=== PATIENT | female | born 1935 | race Two or more races ===

== ENCOUNTER 2018-04-23 18:33 | Emergency (ER) | payer MEDICARE ==
[~2018-04-23] VITALS: Ht 144.8 cm; Wt 47.6 kg
[~2018-04-23 18:33] MED LIST: LISI2.5T47 PO
[2018-04-23 18:50] VITALS: BP 183/66
== END 2018-04-23 23:23 | disposition left against medical advice (07) ==
LOC: ER 18:56
DX: I10 Essential (primary) hypertension (principal); Z53.21 Procedure and treatment not carried out due to patient leaving prior to being seen by health care provider
CPT/HCPCS: 93005

== ENCOUNTER 2018-04-24 10:11 | Emergency (ER) | payer MEDICARE ==
[~2018-04-24] VITALS: Ht 144.8 cm; Wt 49.9 kg
[2018-04-24 10:19] VITALS: BP 146/80
[2018-04-24] MEDS ORDERED: ASPirin 81 mg TAB PO ONE (10:30)
[2018-04-24 14:21] LABS: Basophils # (auto) 0.1 uL; Eosinophils # (auto) 0.8 uL; Hematocrit 39.6 % (36.0-46.0); Hemoglobin 12.9 g/dL (12.2-16.2); Lymphocytes # (auto) 1.4 uL; Lymphocytes % (auto) 18.2 % (10.0-50.0); Mean Corpuscular Hemoglobin 28.6 pg (28.0-32.0); Mean Corpuscular Hgb Conc. 32.7 g/dL (32.0-36.0); Mean Corpuscular Volume 87.3 fL (80.0-100.0); Monocytes # (auto) 0.5 uL; Monocytes % (auto) 6.8 % (0.0-12.0); Neutrophils # (auto) 4.7 uL; Nucleated Red Blood Cells % 0.1 %; Platelet Count (auto) 191 10^3/uL (140-450); Red Blood Cells 4.53 10^6/uL (4.0-5.20); Red Cell Distribution Width 14.1 % (11.8-14.3); White Blood Cell 7.5 10^3/uL (4.4-10.8)
[2018-04-24 14:43] LABS: Alanine Aminotransferase 19 U/L (13-56); Albumin 3.5 g/dL (3.4-5.0); Anion Gap 4 (5-15); Aspartate Aminotransferase 22 U/L (15-37); BUN/Creatinine Ratio 26.9; Blood Urea Nitrogen 28 mg/dL (7-18); Calcium 8.7 mg/dL (8.5-10.1); Carbon Dioxide 28 mmol/L (21-32); Chloride 110 mmol/L (98-107); GFR African American 65 mL/min; GFR Non-African American 54 mL/min; Glucose 93 mg/dL (74-106); Magnesium 2.3 mg/dL (1.6-2.6); Potassium 4.1 mmol/L (3.5-5.1); Sodium 142 mmol/L (136-145)
[2018-04-24 14:48] LABS: Alkaline Phosphatase 91 U/L (45-117); Bilirubin, Total 0.4 mg/dL (0.2-1.0); Total Protein 7.1 g/dL (6.4-8.2)
== END 2018-04-24 16:44 | disposition home or self-care (01) ==
LOC: ER 10:11
DX: R42 Dizziness and giddiness (principal); I10 Essential (primary) hypertension; Z88.5 Allergy status to narcotic agent; Z88.8 Allergy status to other drugs, medicaments and biological substances; Z79.899 Other long term (current) drug therapy; Z86.73 Personal history of transient ischemic attack (TIA), and cerebral infarction without residual deficits
CPT/HCPCS: 36415; 70450; 71046; 80053; 83735; 83880; 84484; 85025; 93005; 94761

== ENCOUNTER 2018-04-25 08:58 | Emergency (ER) | payer MEDICARE ==
[~2018-04-25] VITALS: Ht 144.8 cm; Wt 49.9 kg
[2018-04-25] MEDS ORDERED: SODIUM CHLORIDE 0.9% 1,000 ML IV ONE ×2 (09:47)
[2018-04-25] MEDS ORDERED: PANTOPRAZOLE 40 MG/10 ML VIAL IV ONE (11:00)
[2018-04-25] MEDS ORDERED: PANTOPRAZOLE 40 MG TAB PO ONE (12:00)
[2018-04-25 12:03] VITALS: BP 148/68
== END 2018-04-25 11:53 | disposition home or self-care (01) ==
LOC: ER 08:58
DX: K29.70 Gastritis, unspecified, without bleeding (principal); I10 Essential (primary) hypertension; Z86.73 Personal history of transient ischemic attack (TIA), and cerebral infarction without residual deficits; Z88.5 Allergy status to narcotic agent; Z88.8 Allergy status to other drugs, medicaments and biological substances; Z79.899 Other long term (current) drug therapy
CPT/HCPCS: 93005

== ENCOUNTER 2018-08-11 15:42 | Emergency (ER) | payer MEDICARE ==
[~2018-08-11] VITALS: Ht 170.2 cm; Wt 49.9 kg
[2018-08-11 17:20] VITALS: BP 168/76
[2018-08-11] MEDS ORDERED: traMADol HCL 50 MG TAB PO ONE (18:00)
== END 2018-08-11 19:01 | disposition left against medical advice (07) ==
LOC: EDBD 15:42 → EDUNIT# 15:42 → ER 15:51 → UNDOADMIN 15:52 → TELE 15:52 → ER 19:01
DX: S40.011A Contusion of right shoulder, initial encounter (principal); S09.90XA Unspecified injury of head, initial encounter; Z53.29 Procedure and treatment not carried out because of patient's decision for other reasons; W18.39XA Other fall on same level, initial encounter; Y93.89 Activity, other specified; Y99.8 Other external cause status; Y92.89 Other specified places as the place of occurrence of the external cause
CPT/HCPCS: 70450; 73060

== ENCOUNTER 2021-07-25 16:00 | Emergency (ER) | payer MEDICARE, OTHER ==
[~2021-07-25] VITALS: Ht 162.6 cm; Wt 40.8 kg
[2021-07-25] MEDS ORDERED: ASPirin 81 mg TAB PO ONE (16:15)
[2021-07-25 19:12] LABS: Basophils # (auto) 0 10 ^3/uL (0-0.2); Basophils % (auto) 0.4 % (0.0-2.0); Eosinophils # (auto) 0.3 10 ^3/uL (0-0.8); Eosinophils % (auto) 7.6 % (0.0-7.0); Hematocrit 38.1 % (36.0-46.0); Hemoglobin 12.8 g/dL (12.2-16.2); Lymphocytes # (auto) 1.3 10 ^3/uL (0.4-5.4); Lymphocytes % (auto) 28.6 % (10.0-50.0); Mean Corpuscular Hemoglobin 27.7 pg (28.0-32.0); Mean Corpuscular Hgb Conc. 33.5 g/dL (32.0-36.0); Mean Corpuscular Volume 82.7 fL (80.0-100.0); Monocytes # (auto) 0.5 10 ^3/uL (0-1.3); Monocytes % (auto) 12.3 % (0.0-12.0); Neutrophils # (auto) 2.3 10 ^3/uL (1.6-8.6); Neutrophils % (auto) 51.1 % (37.0-80.0); Nucleated Red Blood Cells % 0.1 %; Red Blood Cells 4.61 10^6/uL (4.0-5.20); Red Cell Distribution Width 14.7 % (11.8-14.3); White Blood Cell 4.4 10^3/uL (4.4-10.8)
[2021-07-25 19:41] LABS: Albumin 2.8 g/dL (3.4-5.0); BUN/Creatinine Ratio 24.3; Potassium 3.9 mmol/L (3.5-5.1)
[2021-07-25 19:44] LABS: Bilirubin, Total 0.3 mg/dL (0.2-1.0); Total Protein 6.4 g/dL (6.4-8.2)
[2021-07-25] MEDS ORDERED: IOHEXOL 350 MG/ML 100ML IJ ONE (20:07)
[2021-07-26 02:46] VITALS: BP 166/60
[2021-07-26 03:47] LABS: Urine Bacteria NONE SEEN /hpf (None Seen); Urine Blood Negative /uL (Negative); Urine WBC 5 /hpf (0 - 5)
== END 2021-07-26 03:26 | disposition home or self-care (01) ==
LOC: ER 16:00 → EDBD 16:00 → ER 07-26 03:26
DX: R07.89 Other chest pain (principal); I10 Essential (primary) hypertension; Z86.73 Personal history of transient ischemic attack (TIA), and cerebral infarction without residual deficits; Z88.6 Allergy status to analgesic agent
CPT/HCPCS: 36415; 71045; 71275; 80053; 81001; 84484; 85025; 85379; 93005; 99285; Q9967

== ENCOUNTER 2022-07-23 16:17 | Emergency (ER) | payer MEDICARE, OTHER ==
[~2022-07-23] VITALS: Ht 149.9 cm; Wt 51.3 kg
[2022-07-23] MEDS ORDERED: HYDROcodone-ACET 5/325MG TAB PO ONE (18:00)
[2022-07-23 21:30] VITALS: BP 138/76
== END 2022-07-23 22:44 | disposition home or self-care (01) ==
LOC: EDBD 16:17 → ER 16:17
DX: S62.307A Unspecified fracture of fifth metacarpal bone, left hand, initial encounter for closed fracture (principal); S09.8XXA Other specified injuries of head, initial encounter; I10 Essential (primary) hypertension; Z88.6 Allergy status to analgesic agent; Z86.73 Personal history of transient ischemic attack (TIA), and cerebral infarction without residual deficits; V49.9XXA Car occupant (driver) (passenger) injured in unspecified traffic accident, initial encounter; Y93.89 Activity, other specified; Y92.89 Other specified places as the place of occurrence of the external cause; Y99.8 Other external cause status
CPT/HCPCS: 29125; 70450; 71045; 72125; 73110; 73590

== ENCOUNTER 2022-11-17 07:30 | Inpatient (IN) | payer MEDICARE, OTHER ==
[2022-11-17] VITALS (7 sets, daily range): BP systolic 140–149; BP diastolic 56–81; PULSE 69–80; RESP 11–18; TEMP 36.6; O2SAT 94–99
[~2022-11-17] VITALS: Ht 147.3 cm; Wt 54.0 kg
[2022-11-17] MEDS ORDERED: SODIUM CHLORIDE 0.9% 1,000 ML IV ONE (07:45)
[2022-11-17 08:24] LABS: Alanine Aminotransferase 14 U/L (7-40); Albumin 4.2 g/dL (3.2-4.8); Alkaline Phosphatase 90 U/L (46-116); Anion Gap 9 (5-15); Aspartate Aminotransferase 23 U/L (13-40); BUN/Creatinine Ratio 18.1 (10.0-20.0); Bilirubin, Total 0.7 mg/dL (0.2-1.0); Blood Urea Nitrogen 23 mg/dL (9-23); Calcium 9.4 mg/dL (8.5-10.1); Carbon Dioxide 26 mmol/L (20-30); Chloride 105 mmol/L (98-107); Glucose 115 mg/dL (74-106); Potassium 3.5 mmol/L (3.5-5.1); Sodium 140 mmol/L (136-145); Total Protein 6.7 g/dL (5.7-8.2)
[2022-11-17 08:44] LABS: Basophils # (auto) 0 10 ^3/uL (0-0.2); Eosinophils # (auto) 0.4 10 ^3/uL (0-0.8); Eosinophils % (auto) 7.9 % (0.0-7.0); Hematocrit 39.1 % (36.0-46.0); Hemoglobin 12.8 g/dL (12.2-16.2); Lymphocytes # (auto) 1.2 10 ^3/uL (0.4-5.4); Lymphocytes % (auto) 23.8 % (10.0-50.0); Mean Corpuscular Hemoglobin 28.4 pg (28.0-32.0); Mean Corpuscular Hgb Conc. 32.8 g/dL (32.0-36.0); Mean Corpuscular Volume 86.8 fL (80.0-100.0); Monocytes # (auto) 0.5 10 ^3/uL (0-1.3); Monocytes % (auto) 11.1 % (0.0-12.0); Neutrophils # (auto) 2.7 10 ^3/uL (1.6-8.6); Neutrophils % (auto) 56.2 % (37.0-80.0); Nucleated Red Blood Cells % 0.2 %; Red Cell Distribution Width 14.4 % (11.8-14.3); White Blood Cell 4.8 10^3/uL (4.4-10.8)
[2022-11-17 11:37] LABS: Magnesium 1.8 mg/dL (1.6-2.6)
[2022-11-17 11:38] LABS: Phosphorus 3.7 mg/dL (2.4-5.1)
[2022-11-17] MEDS: SODIUM CHLORIDE 0.9% 1,000 ML IV SCH ×2 (11:43→21:09)
[2022-11-17] MEDS ORDERED: ACETAMINOPHEN 325 MG TAB PO PRN (12:45)
[2022-11-17] MEDS ORDERED: ENOXAPARIN SOD 60 MG/0.6 ML SYRINGE SC SCH (13:00)
[2022-11-17] MEDS ORDERED: amLODIPine BESYLATE 5 MG TAB PO ONE (16:00)
[2022-11-17] MEDS: ATORVASTATIN 20 MG TAB PO SCH (21:08)
[2022-11-17] MEDS ORDERED: LORazepam 2MG/ML-1ML VIAL IV PRN (21:30)
[2022-11-18] VITALS (7 sets, daily range): BP systolic 138–158; BP diastolic 47–70; PULSE 60–79; RESP 17–18; TEMP 97.4–98.4; O2SAT 94–97
[2022-11-18] MEDS: SODIUM CHLORIDE 0.9% 1,000 ML IV SCH ×2 (06:28→17:00)
[2022-11-18] MEDS: ASPirin 81 mg TAB PO SCH (08:38)
[2022-11-18] MEDS ORDERED: LISINOPRIL 5 MG TAB PO SCH (10:00)
[2022-11-18] MEDS ORDERED: ENOXAPARIN SOD 30 MG/0.3 ML SYRINGE SC SCH (10:00)
[2022-11-18] MEDS ORDERED: diphenhdrAMINE HCL 25 MG CAP PO PRN (11:45)
[2022-11-18] MEDS ORDERED: VALSARTAN 80 MG TAB PO ONE (11:45)
[2022-11-18 14:38] LABS: COVID19 ANTIGEN SOFIA FIA POSITIVE (NEGATIVE)
[2022-11-18] MEDS: ATORVASTATIN 20 MG TAB PO SCH (21:36)
[2022-11-19 05:00] VITALS: BP 171/68; PULSE 80; RESP 18; TEMP 98; O2SAT 95
[2022-11-19 05:18] LABS: Hematocrit 34.1 % (36.0-46.0); Hemoglobin 11.2 g/dL (12.2-16.2); Mean Corpuscular Hemoglobin 28.3 pg (28.0-32.0); Mean Corpuscular Hgb Conc. 32.9 g/dL (32.0-36.0); Mean Corpuscular Volume 86.1 fL (80.0-100.0); Red Blood Cells 3.96 10^6/uL (4.0-5.20); Red Cell Distribution Width 14.5 % (11.8-14.3)
[2022-11-19 05:20] LABS: Band Neutrophils % (manual) 0; Basophils % (manual) 0 (0.0-2.0); Blast Cells 0; Metamyelocytes % 0; Myelocytes % 0; Promyelocytes % 0; Reactive Lymphocytes 0
[2022-11-19 05:26] LABS: Anion Gap 6 (5-15); Carbon Dioxide 24 mmol/L (20-30); Chloride 111 mmol/L (98-107); Potassium 3.7 mmol/L (3.5-5.1); Sodium 141 mmol/L (136-145)
[2022-11-19 05:27] LABS: Calcium 8.6 mg/dL (8.7-10.4)
[2022-11-19 05:32] LABS: BUN/Creatinine Ratio 17.1 (10.0-20.0); Blood Urea Nitrogen 13 mg/dL (9-23); Glucose 110 mg/dL (74-106)
[2022-11-19 06:06] LABS: Eosinophils % (manual) 14 (0-7); Lymphocytes % (manual) 21 (10.0-50.0); Monocytes % (manual) 6 (0-12); Platelet Estimate Adequate
[2022-11-19] MEDS: SODIUM CHLORIDE 0.9% 1,000 ML IV SCH (06:07)
[2022-11-19] MEDS ORDERED: ENOXAPARIN SOD 30 MG/0.3 ML SYRINGE SC ONE (07:30)
[2022-11-19] MEDS ORDERED: amLODIPine BESYLATE 5 MG TAB PO ONE (07:30)
[2022-11-19 08:00] VITALS: PULSE 73; PULSE 92; RESP 18; O2SAT 97
[2022-11-19] MEDS: ASPirin 81 mg TAB PO SCH (09:30)
[2022-11-19] MEDS ORDERED: VALSARTAN 80 MG TAB PO SCH (10:00)
[2022-11-19] MEDS ORDERED: AMLO1TAB23 PO (10:04)
[2022-11-19] MEDS ORDERED: METO-289 PO (10:05)
[2022-11-19] MEDS ORDERED: DIPH25CA66 PO (10:36)
[2022-11-19 10:46] VITALS: BP 147/72; PULSE 95; RESP 18; TEMP 97.7; O2SAT 95
[2022-11-20 07:06] LABS: RPR Non Reactive (Non Reactive)
[2022-11-20] MEDS ORDERED: amLODIPine BESYLATE 5 MG TAB PO SCH (10:00)
[2022-11-20] MEDS ORDERED: ENOXAPARIN SOD 30 MG/0.3 ML SYRINGE SC SCH (10:00)
== END 2022-11-19 15:39 | disposition home or self-care (01) | DRG 177 ==
LOC: ER 07:30 → TELE 10:51 → TELE-WESTW 13:36
PROVIDERS: ADMIT Internal Medicine Pulmonary Disease; ATTEND Internal Medicine Pulmonary Disease
DX: U07.1 COVID-19 (principal); G93.41 Metabolic encephalopathy; E16.2 Hypoglycemia, unspecified; I16.0 Hypertensive urgency; Z60.2 Problems related to living alone; R55 Syncope and collapse; R53.81 Other malaise; I12.9 Hypertensive chronic kidney disease with stage 1 through stage 4 chronic kidney disease, or unspecified chronic kidney disease; N18.32 Chronic kidney disease, stage 3b; Z82.49 Family history of ischemic heart disease and other diseases of the circulatory system; Z86.73 Personal history of transient ischemic attack (TIA), and cerebral infarction without residual deficits; Z90.5 Acquired absence of kidney; Z88.5 Allergy status to narcotic agent; Z88.8 Allergy status to other drugs, medicaments and biological substances; Z91.81 History of falling
CPT/HCPCS: 36415; 70450; 71045; 80048; 80053; 82728; 82962; 83735; 84100; 84439; 84443; 84484; 85007; 85025; 85027; 85379; 86141; 86592; 87426; 92610; 93005; 93306; 93886; 93970; 95819; 96372; 97110; 97116; 97163; 97530; G0378

== ENCOUNTER 2022-11-23 12:45 | Emergency (ER) | payer MEDICARE, OTHER ==
[~2022-11-23] VITALS: Ht 147.3 cm; Wt 50.3 kg
[~2022-11-23 12:45] MED LIST changes: +AMLO1TAB23 PO; +DIPH25CA66 PO; -LISI2.5T47 PO; +METO-289 PO
[2022-11-23 12:50] VITALS: BP 131/57; RESP 20; O2SAT 96
[2022-11-23 13:01] VITALS: PULSE 85
== END 2022-11-24 15:16 | disposition left against medical advice (07) ==
LOC: ER 12:45
DX: R53.1 Weakness (principal); Z88.5 Allergy status to narcotic agent; Z88.8 Allergy status to other drugs, medicaments and biological substances; Z79.899 Other long term (current) drug therapy; Z53.29 Procedure and treatment not carried out because of patient's decision for other reasons
CPT/HCPCS: 82962; 93005

== ENCOUNTER 2023-10-04 23:47 | Inpatient (IN) | payer MEDICARE, OTHER ==
[~2023-10-04] VITALS: Ht 149.9 cm; Wt 52.8 kg
[2023-10-05 01:48] LABS: Basophils # (auto) 0.1 10 ^3/uL (0-0.2); Basophils % (auto) 0.9 % (0.0-2.0); Eosinophils # (auto) 0.5 10 ^3/uL (0-0.8); Hematocrit 37.9 % (36.0-46.0); Hemoglobin 12.5 g/dL (12.2-16.2); Lymphocytes # (auto) 1.1 10 ^3/uL (0.4-5.4); Lymphocytes % (auto) 12.3 % (10.0-50.0); Mean Corpuscular Hemoglobin 28.6 pg (28.0-32.0); Mean Corpuscular Hgb Conc. 33.1 g/dL (32.0-36.0); Mean Corpuscular Volume 86.4 fL (80.0-100.0); Monocytes # (auto) 0.6 10 ^3/uL (0-1.3); Monocytes % (auto) 7.3 % (0.0-12.0); Neutrophils # (auto) 6.5 10 ^3/uL (1.6-8.6); Neutrophils % (auto) 73.5 % (37.0-80.0); Nucleated Red Blood Cells % 0.1 %; Platelet Count (auto) 145 10^3/uL (140-450); Red Blood Cells 4.39 10^6/uL (4.0-5.20); Red Cell Distribution Width 15.6 % (11.8-14.3); White Blood Cell 8.8 10^3/uL (4.4-10.8)
[2023-10-05 02:00] VITALS: PULSE 68; RESP 14; O2SAT 99
[2023-10-05 02:02] LABS: Alanine Aminotransferase 16 U/L (7-40); Albumin 3.9 g/dL (3.2-4.8); Alkaline Phosphatase 86 U/L (46-116); Anion Gap 8 (5-15); Aspartate Aminotransferase 11 U/L (13-40); BUN/Creatinine Ratio 17.6 (10.0-20.0); Bilirubin, Total 0.5 mg/dL (0.2-1.0); Blood Urea Nitrogen 21 mg/dL (9-23); Calcium 9.5 mg/dL (8.7-10.4); Carbon Dioxide 25 mmol/L (20-30); Chloride 111 mmol/L (98-107); Glucose 126 mg/dL (74-106); Potassium 3.9 mmol/L (3.5-5.1); Sodium 144 mmol/L (136-145); Total Protein 6.2 g/dL (5.7-8.2)
[2023-10-05 02:14] LABS: Lipase 46 U/L (12-53)
[2023-10-05] MEDS: MORPHINE SULFATE INJ 2 MG/ml SYRG IV ONE (03:15)
[2023-10-05] MEDS: ONDANSETRON HCL 4 MG/2 ML VIAL IV ONE (03:15)
[2023-10-05] MEDS: SODIUM CHLORIDE 0.9% 1,000 ML IV ONE (04:59)
[2023-10-05] MEDS ORDERED: ONDANSETRON HCL 4 MG/2 ML VIAL IV PRN (05:30)
[2023-10-05] MEDS ORDERED: MORPHINE SULFATE INJ 2 MG/ml SYRG IV PRN (05:30)
[2023-10-05] MEDS ORDERED: NITROGLYCERIN 0.4 MG SL TAB SL PRN (05:30)
[2023-10-05] MEDS ORDERED: DOCUSATE SOD 100 MG CAP PO PRN (05:30)
[2023-10-05] MEDS: SODIUM CHLOR 0.9% PF (SALINE LOCK) 10ML VIAL/SYR IV SCH (06:24)
[2023-10-05 07:25] VITALS: PULSE 72; RESP 16; O2SAT 97
[2023-10-05] MEDS: ACETAMINOPHEN 325 MG TAB PO PRN (12:17)
[2023-10-05 12:23] LABS: Urine Bacteria FEW /hpf (None Seen); Urine Blood Negative /uL (Negative); Urine Clarity Clear (Clear); Urine Color Light-Yellow (Yellow); Urine Mucus FEW (None Seen); Urine Protein, UAD Negative (Negative); Urine Specific Gravity 1.015 (1.001-1.035); Urine Urobilinogen Normal (Negative); Urine WBC 3 /hpf (0 - 5); Urine pH 5.5 (5.0-9.0)
[2023-10-05] MEDS: hydrALAZINE HCL 20 MG/ML VL IV PRN (15:40)
[2023-10-05 17:28] VITALS: O2SAT 98
[2023-10-05 17:37] VITALS: BP 150/63; PULSE 91; RESP 18; TEMP 97.8; O2SAT 98
[2023-10-05 20:00] VITALS: PULSE 87; RESP 17
[2023-10-06 01:15] VITALS: BP 140/59; PULSE 87; RESP 17; TEMP 98.1; O2SAT 99
[2023-10-06 05:00] VITALS: BP 120/69; PULSE 67; RESP 18; TEMP 97.9; O2SAT 97
[2023-10-06 07:05] LABS: Hematocrit 35.3 % (36.0-46.0); Hemoglobin 11.6 g/dL (12.2-16.2); Mean Corpuscular Hemoglobin 28.5 pg (28.0-32.0); Mean Corpuscular Hgb Conc. 32.9 g/dL (32.0-36.0); Mean Corpuscular Volume 86.7 fL (80.0-100.0); Platelet Count (auto) 139 10^3/uL (140-450); Red Blood Cells 4.07 10^6/uL (4.0-5.20); Red Cell Distribution Width 15.6 % (11.8-14.3); White Blood Cell 5.2 10^3/uL (4.4-10.8)
[2023-10-06 07:17] LABS: Band Neutrophils % (manual) 0; Basophils % (manual) 0 (0.0-2.0); Blast Cells 0; Metamyelocytes % 0; Myelocytes % 0; Promyelocytes % 0; Reactive Lymphocytes 0
[2023-10-06 07:30] VITALS: PULSE 87
[2023-10-06 07:36] LABS: Alanine Aminotransferase 10 U/L (7-40); Alkaline Phosphatase 75 U/L (46-116); Anion Gap 6 (5-15); Blood Urea Nitrogen 17 mg/dL (9-23); Calcium 9.2 mg/dL (8.7-10.4); Carbon Dioxide 25 mmol/L (20-30); Chloride 112 mmol/L (98-107); Glucose 95 mg/dL (74-106); Potassium 4.2 mmol/L (3.5-5.1); Sodium 143 mmol/L (136-145)
[2023-10-06 07:37] LABS: Albumin 3.3 g/dL (3.2-4.8); Aspartate Aminotransferase 10 U/L (13-40); Bilirubin, Total 0.5 mg/dL (0.2-1.0); Total Protein 5.2 g/dL (5.7-8.2)
[2023-10-06 08:19] LABS: Eosinophils % (manual) 13 (0-7); Lymphocytes % (manual) 20 (10.0-50.0); Monocytes % (manual) 5 (0-12)
[2023-10-06 08:21] LABS: Anisocytosis Slight; Ovalocytes FEW
[2023-10-06 08:26] LABS: Platelet Estimate Decreased
[2023-10-06 08:54] VITALS: BP 141/56; PULSE 64; RESP 18; TEMP 98.1; O2SAT 96
[2023-10-06] MEDS: diphenhdrAMINE HCL 50 MG/1 ML VL IV PRN (11:22)
[2023-10-06 12:09] VITALS: BP_SYST 129; BP_SYST 149; BP_DIAS 65; BP_DIAS 68; PULSE 59; PULSE 93; RESP 18; RESP 20; TEMP 98.7; O2SAT 96; O2SAT 98
[2023-10-06 14:21] VITALS: TEMP 37.1
== END 2023-10-06 15:00 | disposition home or self-care (01) | DRG 604 ==
LOC: EDUNIT# 23:47 → ER 23:47 → EDBD 23:47 → TELE 10-05 05:28 → TELE-WESTW 10-05 17:16
PROVIDERS: ADMIT Nurse Practitioner Family; ATTEND Nurse Practitioner Family
DX: S00.83XA Contusion of other part of head, initial encounter (principal); G93.41 Metabolic encephalopathy; I10 Essential (primary) hypertension; I95.9 Hypotension, unspecified; E86.0 Dehydration; Z86.73 Personal history of transient ischemic attack (TIA), and cerebral infarction without residual deficits; W18.39XA Other fall on same level, initial encounter; Y93.89 Activity, other specified; Y92.098 Other place in other non-institutional residence as the place of occurrence of the external cause; Y99.8 Other external cause status
CPT/HCPCS: 36415; 70450; 71045; 72125; 80053; 81001; 83605; 83690; 83880; 84484; 85007; 85025; 85027; 93005; G0378; J2405

== ENCOUNTER 2024-01-19 14:27 | Emergency (ER) | payer MEDICARE, OTHER ==
[~2024-01-19] VITALS: Ht 149.9 cm; Wt 49.5 kg
--- NOTE | 2024-01-19 16:02 | ED.PDOC ---
History of Present Illness HPI Comments 89Y F with PMHx HTN and CVA presents to ED for chief complaint rt hand pain. Pt states pain radiates to upper arm and she has now started to develop blisters on fingertips. Pt states the blisters accidentally opened and drained yellow fluid 2 days ago. Blisters began forming 2 weeks ago. Pt says rt hand began to hurt "like needles" and feel cold after getting an IV placed here at [facility] in October 2023. Pt also c/o feeling itchy from "head to toe". When gathering pt hx, pt explained she had a coil placed in her RUE in 2018 at [facility] and it was meant to be placed into a different pt. Pt says coil was never removed from her arm. Per pt, she has been prescribed 32 meds by multiple providers but is only taking Losartan. Allergies include morphine and codeine. Chief Complaint: Upper Extremity Time Seen by MD: 15:35 Primary Care Provider: STOOP Reviewed Notes: Medications, Allergies Allergies: Coded Allergies: Morphine (Verified Allergy, Severe, 07/23/22) Lisinopril (Verified Allergy, Unknown, 07/23/22) Uncoded Allergies: ALL PAIN MEDS (Allergy, Severe, 04/23/18) CODIENE (Adverse Reaction, Intermediate, "MAKES ME CRAZY", 01/22/10) Home Meds Active Scripts Diphenhydramine Hcl (Benadryl Allergy) 25 Mg Cap, 1 CAP PO QPM, #7 CAP 1 Refill Prov:CECE REDDY MD 11/19/22 Metoprolol Succinate (Metoprolol Succinate Er) 50 Mg Tab, 1 TAB PO DAILY, #30 TAB 5 Refills Prov:CECE REDDY MD 11/19/22 Amlodipine Besylate (Amlodipine Besylate) 10 Mg Tab, 1 TAB PO DAILY, #30 TAB 5 Refills Prov:CECE REDDY MD 11/19/22 Information Source: Patient Mode of Arrival: Ambulatory Severity: Mild Timing: Weeks Duration: Since onset Past Medical History PAST MEDICAL HISTORY: CVA, HTN Surgical History (Other): nephrectomy 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 History Family History Family History: Unobtainable Social History Smoker: Non-Smoker Alcohol: Denies ETOH Use Drugs: Denies Drug Use Lives In: Home Constitutional: denies: chills, diaphoresis, fatigue, fever, malaise, sweats, weakness, others EENTM: denies: blurred vision, double vision, ear bleeding, ear discharge, ear drainage, ear pain, ear ringing, eye pain, eye redness, hearing loss, mouth pain, mouth swelling, nasal discharge, nose bleeding, nose congestion, nose pain, photophobia, tearing, throat pain, throat swelling, voice changes, others Respiratory: denies: cough, hemoptysis, orthopnea, SOB at rest, shortness of breath, SOB with excertion, stridor, wheezing, others Cardiovascular: denies: chest pain, dizzy spells, diaphoresis, Dyspnea on exertion, edema, irregular heart beat, left arm pain, lightheadedness, palpitations, PND, syncope, others Gastrointestinal: denies: abdomen distended, abdominal pain, blood streaked bowels, constipated, diarrhea, dysphagia, difficulty swallowing, hematemesis, melena, nausea, poor appetite, poor fluid intake, rectal bleeding, rectal pain, vomiting, others Genitourinary: denies: abnormal vagina bleeding, burning, dyspareunia, dysuria, flank pain, frequency, hematuria, incontinence, pain, , vagina discharge, urgency, others Neurological: denies: dizziness, fainting, headache, left sided numbness, left sided weakness, numbness, paresthesia, pre-existing deficit, right sided numbness, right sided weakness, seizure, speech problems, tingling, tremors, weakness, others Musculoskeletal: reports: joint pain; denies: back pain, gout, joint swelling, muscle pain, muscle stiffness, neck pain, others Integumetry: reports: others (pruritus); denies: bruises, change in color, change in hair/nails, dryness, laceration, lesions, lumps, rash, wounds Allergic/Immunocompromised: denies: Difficulty Healing, Frequent Infections, Hives, Itching, others Hematologic/Lymphatic: denies: anemia, blood clots, easy bleeding, easy bruising, swollen glands, others Endocrine: denies: excessive hunger, excessive sweating, excessive thirst, excessive urination, flushing, intolerance to cold, intolerance to heat, unexplained weight gain, unexplained weight loss, others Psychiatric: denies: anxiety, bipolar disorder, depression, hopeless, panic disorder, schizophrenia, sleepless, suicidal, others All Other Systems: Reviewed and Negative Physical Exam General Appearance: No Apparent Distress HEENT: Normal ENT Inspection Neck: Full Range of Motion, Normal Inspection Respiratory: Lungs Clear, No Accessory Muscle Use, No Respiratory Distress, Normal Breath Sounds Cardiovascular: No Edema, No JVD, Regular Rate/Rhythm Breast Exam: Deferred Gastrointestinal: Non Tender, Soft Genitalia: Deferred Pelvic: Deferred Rectal: Deferred Extremities: Normal range of motion, Non-tender, No pedal edema, Slow capillary refill, Other (Hand mild soft tissue swelling of the fingertips with tenderness and a subcentimeter scabbed lesion on the 3rd digit finger pad. No erythema or discharge. Right hand cool to the touch, pale with delayed capillary refill as compared to the left hand.) Neurologic: Alert, No Motor Deficits, Normal Affect, Normal Mood, No Sensory Deficits Cerebellar Function: NOT DONE Reflexes: NOT DONE Skin: Dry, Normal Color, Warm Lymphatic: NOT DONE Was a procedure done? Was a procedure done?: No Differential Dx Considerations may include: Infection, musculoskeletal pain, neuropathic pain, VTE, peripheral arterial disease/occlusion, among others. X-Ray, Labs, Meds, VS Vital Signs Date Time Temp Pulse Resp B/P (MAP) Pulse Ox O2 Delivery O2 Flow Rate FiO2 01/19/24 17:03 87 17 95 Room Air* 0 21 01/19/24 17:03 98.4 87 17 181/54 (96) 95 98.4 01/19/24 15:10 99.3 100 18 132/84 (100) 95 Current Medications Medications (Trade) Dose Ordered Sig/Charisse Route Start Time Stop Time Status Last Admin Acetaminophen/ Hydrocodone Bitart (Lima 5/325MG Tab) 1 tab ONCE ONCE PO 01/19/24 16:00 01/19/24 16:01 DC 01/19/24 17:01 PROCEDURE(s): RUDVT - Rt Upper DVT REASON: pain, swollen fingers ORDER NUMBER(s): [id number], ACCESSION NUMBER(s): [id number] RIGHT Upper Extremity Venous Duplex Clinical History: pain, swollen fingers Comparison: US BILAT LOWER DVT on DOS: 11/17/22 Technique: Duplex Doppler evaluation of the venous system of the RIGHT lower neck and upper extremity including color Doppler and spectral/pulsed waveform analysis was performed. Findings: The internal jugular vein demonstrates appropriate compressibility and waveform variability . The subclavian vein is patent on color Doppler evaluation without intraluminal thrombus and demonstrates waveform variability . The visualized portion of the brachiocephalic vein is patent on color Doppler evaluation without intraluminal thrombus and demonstrates waveform variability . The axillary vein demonstrates appropriate compressibility and waveform variability . The brachial veins demonstrate appropriate compressibility and patency on Doppler evaluation. The basilic vein demonstrates appropriate compressibility and patency on Doppler evaluation. The cephalic vein demonstrates appropriate compressibility and patency on Doppler evaluation. Impression: 1. No venous thrombus identified in the RIGHT upper extremity vessels evaluated above. 2. If clinical concern/symptoms persist or worsen, short-interval follow-up study is suggested. EDURE(s): RUEAD - Rt Upper Ext Art Duplex REASON: ORDER NUMBER(s): [id number], ACCESSION NUMBER(s): [id number] Right upper Extremity Arterial Duplex Date: 01/19/2024 04:20 PM Clinical History: Pain Comparison: None Technique: Duplex Doppler evaluation including color Doppler and spectral/pulsed waveform analysis of the right upper extremity arteries was performed. Finding: RIGHT: Peak systolic velocities are as follows: Subclavian 143 cm/s Axillary 52 cm/s Brachial 82 cm/s Radio 18 cm/s Ulnar 6 cm/s In the right axillary area there appears to be a right axillary artery pseudoaneurysm measuring approximately 2.5 by 3.0 cm with a 1.6 cm neck. IMPRESSION: 1. 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 Consider CTA of the right upper extremity for further characterization. 2. The remaining right upper extremity arteries are patent. X-Ray, Labs, Meds, VS Comment 89Y F with PMHx HTN and CVA presenting complaining of right hand pain radiating to the upper arm and a lesion on her right 3rd digit Vitals remarkable for BP 181/54 Remarkable for a subcentimeter scabbed lesion on the 3rd finger pad with mild soft tissue tenderness, mild soft tissue swelling of the right fingertips, right hand pallor, cool to the touch with delayed capillary refill as compared to the left hand Right upper extremity venous Doppler negative for DVT Right upper extremity arterial duplex: IMPRESSION: 1. 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 Consider CTA of the right upper extremity for further characterization. 2. The remaining right upper extremity arteries are patent. CBC, basic metabolic panel and coagulation panel pending Patient treated with the following in the ED: Lima 5/325 mg p.o. Plan was to transfer the patient for level of care, vascular surgical evaluation. Patient was called multiple times for re-evaluation, however there was no answer. It was determined the patient had eloped. Time of 1ST Reevaluation: 16:05 Reevaluation 1ST: Unchanged Time of 2ND Reevaluation: 19:17 Reevaluation 2ND: Improved Patient Education/Counseling: Treatment Family Education/Counseling: No Family Present Departure 1 Departure Time of Disposition: 19:17 Impression: Primary Impression: Pseudoaneurysm of artery of upper extremity Disposition: 07 LEFT AWOL/ELOPED Condition: Guarded Critical Care Note Critical Care Time?: No Stability Stability form required: No Heart Score Heart Score: Heart Score Response (Comments) Value History N/A 0 EKG N/A 0 Age N/A 0 Risk Factors N/A 0 Troponin N/A 0 Total 0 I personally scribed for KEV WAITE MD ([facility]) on 01/19/24 at 16:02. Electronically submitted by Kathy Jason ([employer]). I personally scribed for KEV WAITE MD ([email or web address]) on 01/19/24 at 18:59. Electronically submitted by Kathy Jason ([employer]). KEV WAITE MD Jan 19, 2024 16:02
[2024-01-19] MEDS: HYDROcodone-ACET 5/325MG TAB PO ONE (16:05)
[2024-01-19 17:03] VITALS: BP 181/54; PULSE 87; RESP 17; TEMP 98.4; O2SAT 95
--- NOTE | 2024-01-19 17:12 | DVH ---
RIGHT Upper Extremity Venous Duplex Clinical History: pain, swollen fingers Comparison: US BILAT LOWER DVT on DOS: 11/17/22 Technique: Duplex Doppler evaluation of the venous system of the RIGHT lower neck and upper extremity including color Doppler and spectral/pulsed waveform analysis was performed. Findings: The internal jugular vein demonstrates appropriate compressibility and waveform variability . The subclavian vein is patent on color Doppler evaluation without intraluminal thrombus and demonstra nick waveform variability . The visualized portion of the brachiocephalic vein is patent on color Doppler evaluation without intr aluminal thrombus and demonstrates waveform variability . The axillary vein demonstrates appropriate compressibility and waveform variability . The brachial veins demonstrate appropriate compressibility and patency on Doppler evaluation. The basilic vein demonstrates appropriate compressibility and patency on Doppler evaluation. The cephalic vein demonstrates appropriate compressibility and patency on Doppler evaluation. Impression: 1. No venous thrombus identified in the RIGHT upper extremity vessels evaluated above. 2. If clinical concern/symptoms persist or worsen, short-interval follow-up study is suggested.
--- NOTE | 2024-01-19 17:34 | DVH ---
Right upper Extremity Arterial Duplex Date: 01/19/2024 04:20 PM Clinical History: Pain Comparison: None Technique: Duplex Doppler evaluation including color Doppler and spectral/pulsed waveform analysis of the right upper extremity arteries was performed. Finding: RIGHT: Peak systolic velocities are as follows: Subclavian 143 cm/s Axillary 52 cm/s Brachial 82 cm/s Radio 18 cm/s Ulnar 6 cm/s In the right axillary area there appears to be a right axillary artery pseudoaneurysm measuring appro ximately 2.5 by 3.0 cm with a 1.6 cm neck. IMPRESSION: 1. 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 Consider CTA of the right upper extremity for further characterization. 2. The remaining right upper extremity arteries are patent.
== END 2024-01-19 20:30 | disposition left against medical advice (07) ==
LOC: ER 14:27
DX: I72.1 Aneurysm of artery of upper extremity (principal); I10 Essential (primary) hypertension; Z79.899 Other long term (current) drug therapy; Z88.5 Allergy status to narcotic agent; Z88.8 Allergy status to other drugs, medicaments and biological substances
CPT/HCPCS: 93971

== ENCOUNTER 2024-01-25 07:30 | Inpatient (IN) | payer MEDICARE, OTHER ==
[~2024-01-25] VITALS: Ht 160 cm; Wt 50.1 kg
--- NOTE | 2024-01-25 07:48 | ED.PDOC ---
History of Present Illness HPI Comments 89Y F with PMHx HTN, CVA, and neuropathy presents to ED via EMS for chief complaint general weakness [id number]. Pt states she has had 7 episodes of syncope in the last 2 months, as well as vertigo. Per pt, vertigo became worse this morning so she decided to call 911. Per EMS, pt is A&Ox4, does not have defici ts, and is able to ambulate. [facility]24 and was dx with pseudoaneurysm of RUE. Pt was also d/c on 10/05/2023 and 11/17/2022 for dx syncope, all notes reviewed. Chief Complaint: General Weakness Time Seen by MD: 07:35 Primary Care Provider: LISSY Reviewed Notes: Medications, Allergies Allergies: Coded Allergies: Morphine (Verified Allergy, Severe, 07/23/22) Lisinopril (Verified Allergy, Unknown, 07/23/22) Uncoded Allergies: ALL PAIN MEDS (Allergy, Severe, 04/23/18) CODIENE (Adverse Reaction, Intermediate, "MAKES ME CRAZY", 01/22/10) Home Meds Active Scripts Diphenhydramine Hcl (Benadryl Allergy) 25 Mg Cap, 1 CAP PO QPM, #7 CAP 1 Refill Prov:CECE REDDY MD 11/19/22 Metoprolol Succinate (Metoprolol Succinate Er) 50 Mg Tab, 1 TAB PO DAILY, #30 TAB 5 Refills Prov:CECE REDDY MD 11/19/22 Amlodipine Besylate (Amlodipine Besylate) 10 Mg Tab, 1 TAB PO DAILY, #30 TAB 5 Refills Prov:CECE REDDY MD 11/19/22 Information Source: Patient Mode of Arrival: EMS Severity: Moderate Timing: Months Duration: Intermittent Past Medical History PAST MEDICAL HISTORY: CVA, HTN Surgical History: Denies all surgeries 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 Family History Family History: Reviewed,noncontributory to illness, Unobtainable Social History Smoker: Non-Smoker Alcohol: Denies ETOH Use Drugs: Denies Drug Use Lives In: Home Constitutional: reports: weakness; denies: chills, diaphoresis, fatigue, fever, malaise, sweats, others EENTM: denies: blurred vision, double vision, ear bleeding, ear discharge, ear drainage, ear pain, ear ringing, eye pain, eye redness, hearing loss, mouth pain, mouth swelling, nasal discharge, nose bleeding, nose congestion, nose pain, photophobia, tearing, throat pain, throat swelling, voice changes, others Respiratory: denies: cough, hemoptysis, orthopnea, SOB at rest, shortness of breath, SOB with excertion, stridor, wheezing, others Cardiovascular: denies: chest pain, dizzy spells, diaphoresis, Dyspnea on exertion, edema, irregular heart beat, left arm pain, lightheadedness, palpitations, PND, syncope, others Gastrointestinal: denies: abdomen distended, abdominal pain, blood streaked bowels, constipated, diarrhea, dysphagia, difficulty swallowing, hematemesis, melena, nausea, poor appetite, poor fluid intake, rectal bleeding, rectal pain, vomiting, others Genitourinary: denies: abnormal vagina bleeding, burning, dyspareunia, dysuria, flank pain, frequency, hematuria, incontinence, pain, , vagina discharge, urgency, others Neurological: reports: dizziness, fainting; denies: headache, left sided numbness, left sided weakness, numbness, paresthesia, pre-existing deficit, right sided numbness, right sided weakness, seizure, speech problems, tingling, tremors, weakness, others Musculoskeletal: denies: back pain, gout, joint pain, joint swelling, muscle pain, muscle stiffness, neck pain, others Integumetry: denies: bruises, change in color, change in hair/nails, dryness, laceration, lesions, lumps, rash, wounds, others Allergic/Immunocompromised: denies: Difficulty Healing, Frequent Infections, Hives, Itching, others Hematologic/Lymphatic: denies: anemia, blood clots, easy bleeding, easy bruising, swollen glands, others Endocrine: denies: excessive hunger, excessive sweating, excessive thirst, excessive urination, flushing, intolerance to cold, intolerance to heat, unexplained weight gain, unexplained weight loss, others Psychiatric: denies: anxiety, bipolar disorder, depression, hopeless, panic disorder, schizophrenia, sleepless, suicidal, others All Other Systems: Reviewed and Negative Physical Exam General Appearance: No Apparent Distress, Normal HEENT: Normal ENT Inspection, Pharynx Normal, TMs Normal Neck: Full Range of Motion, Non-Tender, Normal, Normal Inspection Respiratory: Chest Non-Tender, Lungs Clear, No Accessory Muscle Use, No Re spiratory Distress, Normal Breath Sounds Cardiovascular: No Edema, No JVD, No Murmur, No Gallop, Normal Peripheral Pulses, Regular Rate/Rhythm Breast Exam: Deferred Gastrointestinal: No Organomegaly, Non Tender, No Pulsatile Mass, Normal Bowel Sounds, Soft Genitalia: Deferred Pelvic: Deferred Rectal: Deferred Extremities: No calf tenderness, Normal capillary refill, Normal inspection, Normal range of motion, Non-tender, No pedal edema Musculoskeletal : Apperance: Normal Neurologic: Alert, automation control integrator II-XII nml as Tested, No Motor Deficits, Normal Affect, Normal Mood, No Sensory Deficits Cerebellar Function: Normal Reflexes: Normal Skin: Dry, Normal Color, Warm Lymphatic: No Adenopathy Was a procedure done? Was a procedure done?: No EKG EKG : Pulse Rate (adult): 69 [place]: Normal Cardiac Rhythm: NSR Block: LBBB Hypertrophy: None ST: Normal Differential Dx Considerations may include: cardiogenic syncope, neurogenic syncope, hypoglycemia, hypotensaion, central vertigo, peripheral vertigo, pe, acs X-Ray, Labs, Meds, VS Vital Signs Date Time Temp Pulse Resp B/P (MAP) Pulse Ox O2 Delivery O2 Flow Rate FiO2 01/25/24 12:27 66 14 97 Room Air* 0 21 01/25/24 11:30 97.7 66 14 118/49 (72) 97 97.7 01/25/24 07:56 68 16 95 Room Air 01/25/24 07:56 97.6 68 16 131/50 (77) 95 97.6 01/25/24 07:47 69 01/25/24 07:37 69 01/25/24 07:30 98.7 74 18 153/69 (97) 99 Lab Test 01/25/24 10:42 01/25/24 08:54 01/25/24 07:54 Range/Units Troponin I High Sensitivity 10 10 10 </=34 ng/L White Blood Count 5.2 4.4-10.8 10^3/uL Red Blood Count 4.34 4.0-5.20 10^6/uL Hemoglobin 12.3 12.2-16.2 g/dL Hematocrit 37.6 36.0-46.0 % Mean Corpuscular Volume 86.7 80.0-100.0 fL Mean Corpuscular Hemoglobin 28.4 28.0-32.0 pg Mean Corpuscular Hemoglobin Concent 32.8 32.0-36.0 g/dL Red Cell Distribution Width 14.6 H 11.8-14.3 % Platelet Count 149 140-450 10^3/uL Mean Platelet Volume 8.3 6.9-10.8 fL Neutrophils (%) (Auto) 37.0-80.0 % Lymphocytes (%) (Auto) 10.0-50.0 % Monocytes (%) (Auto) 0.0-12.0 % Basophils (%) (Auto) 0.0-2.0 % Neutrophils # (Auto) 1.6-8.6 10 ^3/uL Lymphocytes # (Auto) 0.4-5.4 10 ^3/uL Monocytes # (Auto) 0-1.3 10 ^3/uL Differential Total Cells Counted 100.0 100 Neutrophils % (Manual) 44 37.0-80.0 Band Neutrophils % (Manual) 0 Lymphocytes % (Manual) 29 10.0-50.0 Monocytes % (Manual) 9 0-12 Eosinophils % (Manual) 18 H 0-7 Basophils % (Manual) 0 0.0-2.0 Metamyelocytes % (manual) 0 Myelocytes % (Manual) 0 Promyelocytes % (Manual) 0 Blast Cells % (Manual) 0 Reactive Lymphocytes 0 Platelet Estimate Adequate Ovalocytes Few Sodium Level 144 136-145 mmol/L Potassium Level 3.9 3.5-5.1 mmol/L Chloride Level 111 H 98-107 mmol/L Carbon Dioxide Level 26 20-31 mmol/L Anion Gap 7 5-15 Blood Urea Nitrogen 43 H 9-23 mg/dL Creatinine 1.33 H 0.550-1.02 mg/dL Glomerular Filtration Rate Calc 38 >90 mL/min BUN/Creatinine Ratio 32.3 H 10.0-20.0 Serum Glucose 103 74-106 mg/dL Calcium Level 9.7 8.7-10.4 mg/dL Current Medications Medications (Trade) Dose Ordered Sig/Charisse Route Start Time Stop Time Status Last Admin Meclizine HCl (Antivert Tablet) 25 mg ONCE ONCE PO 01/25/24 07:45 11/23/24 07:46 DC 01/25/24 08:00 Ondansetron HCl (Zofran Po) 4 mg ONCE ONCE PO 01/25/24 07:45 01/25/24 07:46 DC 01/25/24 08:00 Alprazolam (Xanax Tablet) 0.25 mg ONCE ONCE PO 01/25/24 07:45 01/25/24 07:46 DC 01/25/24 08:00 [place] [id number] Ph: [phone] DIAGNOSTIC IMAGING Diagnostic Imaging Report : [id number] Signed PATIENT: RODGER JAY ACCT: [id number] UNIT: [id number] : 01/29/1934 LOC: ER ROOM / BED: / AGE / SEX: 89 / F ADM STATUS: REG ER SERVICE 9 ORDERING PHYSICIAN: BEV MONTEZ MD PROCEDURE(s): CXRP - CHEST PORTABLE REASON: right finger pain ORDER NUMBER(s): [id number], ACCESSION NUMBER(s): [id number] EXAM: XR Chest, 1 View CLINICAL INDICATION: right finger pain TECHNIQUE: Frontal view of the chest. COMPARISON: XY CHEST PORTABLE on DOS: 10/05/23, XY CHEST PORTABLE on DOS: 11/17/22, XY CHEST XRAY 1 VIEW on DOS: 07/23/22 FINDINGS: LUNGS AND PLEURAL SPACES: Unremarkable. No consolidation. No pneumothorax. HEART: Unremarkable. No cardiomegaly. MEDIASTINUM: Unremarkable. Normal mediastinal contour. BONES/JOINTS: Unremarkable. No acute fracture. OTHER FINDINGS: . . . IMPRESSION: No acute cardiopulmonary process. HS:Y ATED BY: JULIET OCAMPO MD DICTATED DATE/TIME: 01/25/24917 SIGNED BY: JULIET OCAMPO MD SIGNED DATE/TIME: 01/25/24917 CC: Time of 1ST Reevaluation: 08:05 Reevaluation 1ST: Unchanged Time of 2ND Reevaluation: 08:39 Reevaluation 2ND: Unchanged Time of 3RD Reevaluation: 14:53 Reevaluation 3RD: Unchanged Patient Education/Counseling: Diagnosis, Treatment Family Education/Counseling: No Family Present Additional Information PT HAS HAD CHRONIC RECURRENT SYNCOPE AND VERTIGO, AND THE LAST HEAD CT IN OCT SHOWED NO ACUTE PROCESS, SO A REPEAT HEAD CT IS NOT ORDERED Tests ordered and results reviewed: CBC, BMP, Troponin, CXR Independent historians include: None. Dr. Montez interpreted each of the tests and agrees with the result. Results and treatment discussed with the pt and medical personnel. pt reportedly eloped, but had a pseudoaneurysms, which needs to be evaluated. with the worsening of syncope and vertigo, she will need to be admitted for further workups. she has renal insufficiency, so CTA will not be done until we can reassess her after hydration Departure 1 Departure Time of Disposition: 14:59 Impression: Primary Impression: Syncope Qualified Codes: R55 - Syncope and collapse Additional Impressions: Vertigo Renal insufficiency Disposition: ADMITTED INPATIENT Condition: Stable Critical Care Note Critical Care Time?: No Stability Stability form required: No I personally scribed for BEV MONTEZ MD ([employer]) on 01/25/24 at 07:47. Electronically submitted by Kathy Jason ([employer]). I personally scribed for BEV MONTEZ MD ([email or web address] SOCIAL) on 01/25/24 at 09:33. Electronically submitted by Kathy Jason ([employer]). BEV MONTEZ MD Jan 25, 2024 07:47
[2024-01-25] MEDS: MECLIZINE HCL 25 MG TAB PO ONE (08:00)
[2024-01-25] MEDS: ONDANSETRON ODT 4 MG TAB PO ONE (08:00)
[2024-01-25] MEDS: ALPRAZolam 0.25 MG TAB PO ONE (08:00)
[2024-01-25 08:09] LABS: Hematocrit 37.6 % (36.0-46.0); Hemoglobin 12.3 g/dL (12.2-16.2); Mean Corpuscular Hemoglobin 28.4 pg (28.0-32.0); Mean Corpuscular Hgb Conc. 32.8 g/dL (32.0-36.0); Mean Corpuscular Volume 86.7 fL (80.0-100.0); Platelet Count (auto) 149 10^3/uL (140-450); Red Blood Cells 4.34 10^6/uL (4.0-5.20); Red Cell Distribution Width 14.6 % (11.8-14.3); White Blood Cell 5.2 10^3/uL (4.4-10.8)
[2024-01-25 08:12] LABS: Band Neutrophils % (manual) 0; Basophils % (manual) 0 (0.0-2.0); Blast Cells 0; Metamyelocytes % 0; Myelocytes % 0; Promyelocytes % 0; Reactive Lymphocytes 0
[2024-01-25 08:19] LABS: Anion Gap 7 (5-15); Carbon Dioxide 26 mmol/L (20-31); Chloride 111 mmol/L (98-107); Potassium 3.9 mmol/L (3.5-5.1); Sodium 144 mmol/L (136-145)
[2024-01-25 08:20] LABS: Calcium 9.7 mg/dL (8.7-10.4)
[2024-01-25 08:25] LABS: BUN/Creatinine Ratio 32.3 (10.0-20.0); Blood Urea Nitrogen 43 mg/dL (9-23); Glucose 103 mg/dL (74-106)
--- NOTE | 2024-01-25 09:21 | DVH ---
EXAM: XR Chest, 1 View CLINICAL INDICATION: right finger pain TECHNIQUE: Frontal view of the chest. COMPARISON: XY CHEST PORTABLE on DOS: 10/05/23, XY CHEST PORTABLE on DOS: 11/17/22, XY CHEST XRAY 1 EW on DOS: 07/23/22 FINDINGS: LUNGS AND PLEURAL SPACES: Unremarkable. No consolidation. No pneumothorax. HEART: Unremarkable. No cardiomegaly. MEDIASTINUM: Unremarkable. Normal mediastinal contour. BONES/JOINTS: Unremarkable. No acute fracture. OTHER FINDINGS: . . . IMPRESSION: No acute cardiopulmonary process. HS:Y
[2024-01-25 09:35] LABS: Eosinophils % (manual) 18 (0-7); Lymphocytes % (manual) 29 (10.0-50.0); Monocytes % (manual) 9 (0-12); Ovalocytes FEW; Platelet Estimate Adequate
[2024-01-25 12:27] VITALS: PULSE 66; RESP 14; O2SAT 97
[2024-01-25] MEDS ORDERED: DOCUSATE SOD 100 MG CAP PO PRN (16:45)
[2024-01-25] MEDS ORDERED: ONDANSETRON HCL 4 MG/2 ML VIAL IV PRN (16:45)
[2024-01-25] MEDS ORDERED: MECLIZINE HCL 25 MG TAB PO PRN (16:45)
--- NOTE | 2024-01-25 17:01 | DVHHP2 ---
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 Dyspnea, Edema, Lt Headedness, Other Gastrointestinal: No: Nausea, Vomiting, Abdominal Pain, Diarrhea, Constipation, Melena, Hematochezia, Other Genitourinary: No Dysuria, No Frequency, No Incontinence, No Hematuria, No Retention, No Other Musculoskeletal: No: other, neck pain, shoulder pain, arm pain, back pain, hand pain, leg pain, foot pain Skin: No: Rash, Lesions, Jaundice, Bruising, Other Neurological: Weakness, Incoordination; No: Numbness, Change in speech, Confusion, Seizures, Other Allergies: Coded Allergies: Morphine (Verified Allergy, Severe, 07/23/22) Lisinopril (Verified Allergy, Unknown, 07/23/22) Uncoded Allergies: ALL PAIN MEDS (Allergy, Severe, 04/23/18) CODIENE (Adverse Reaction, Intermediate, "MAKES ME CRAZY", 01/22/10) Exam Vital Signs Vital Signs Date Time Temp Pulse Resp B/P (MAP) Pulse Ox O2 Delivery O2 Flow Rate FiO2 01/25/24 14:30 91 16 149/79 (102) 97 01/25/24 12:27 Room Air* 0 21 01/25/24 11:30 97.7 97.7 General Appearance: Alert, Oriented X3, mild distress HEENT: PERRLA Respiratory: Clear to auscultation, Normal air movement Cardiovascular: Regular rate, Normal S1, Normal S2 Abdominal: Normal bowel sounds, Soft Extremities: No clubbing, No cyanosis, No edema Skin: No rashes, No breakdown Neuro: Normal gait, Normal speech Psych/Mental Status: Mood NL Labs/Xrays Labs Test 01/25/24 10:42 01/25/24 07:54 Range/Units Troponin I High Sensitivity 10 </=34 ng/L White Blood Count 5.2 4.4-10.8 10^3/uL Red Blood Count 4.34 4.0-5.20 10^6/uL Hemoglobin 12.3 12.2-16.2 g/dL Hematocrit 37.6 36.0-46.0 % Mean Corpuscular Volume 86.7 80.0-100.0 fL Mean Corpuscular Hemoglobin 28.4 28.0-32.0 pg Mean Corpuscular Hemoglobin Concent 32.8 32.0-36.0 g/dL Red Cell Distribution Width 14.6 H 11.8-14.3 % Platelet Count 149 140-450 10^3/uL Mean Platelet Volume 8.3 6.9-10.8 fL Neutrophils (%) (Auto) 37.0-80.0 % Lymphocytes (%) (Auto) 10.0-50.0 % Monocytes (%) (Auto) 0.0-12.0 % Basophils (%) (Auto) 0.0-2.0 % Neutrophils # (Auto) 1.6-8.6 10 ^3/uL Lymphocytes # (Auto) 0.4-5.4 10 ^3/uL Monocytes # (Auto) 0-1.3 10 ^3/uL Differential Total Cells Counted 100.0 100 Neutrophils % (Manual) 44 37.0-80.0 Band Neutrophils % (Manual) 0 Lymphocytes % (Manual) 29 10.0-50.0 Monocytes % (Manual) 9 0-12 Eosinophils % (Manual) 18 H 0-7 Basophils % (Manual) 0 0.0-2.0 Metamyelocytes % (manual) 0 Myelocytes % (Manual) 0 Promyelocytes % (Manual) 0 Blast Cells % (Manual) 0 Reactive Lymphocytes 0 Platelet Estimate Adequate Ovalocytes Few Sodium Level 144 136-145 mmol/L Potassium Level 3.9 3.5-5.1 mmol/L Chloride Level 111 H 98-107 mmol/L Carbon Dioxide Level 26 20-31 mmol/L Anion Gap 7 5-15 Blood Urea Nitrogen 43 H 9-23 mg/dL Creatinine 1.33 H 0.550-1.02 mg/dL Glomerular Filtration Rate Calc 38 >90 mL/min BUN/Creatinine Ratio 32.3 H 10.0-20.0 Serum Glucose 103 74-106 mg/dL Calcium Level 9.7 8.7-10.4 mg/dL Assessment/Plan Assessment/Plan Admit Med/Surg General Weakness Syncope/ Near Syncope Poor intake Iv hydration diet as tolerated CT head r/o stroke monitor bp repeat labs in the am ua to r/o UTI Plan discussed with: Patient My Orders Orders - ROBERT SHAIKH MD Procedure Category Date Status Time Urinalysis LAB 01/25/24 Logged 16:[address] 01/25/24 Taken 16:38 Admit ADMIT 01/25/24 Transmitted 16:40 Code Status CODE 01/25/24 Transmitted 16:40 Vital Signs [facility] 01/25/24 In Process 16:40 Review Orders With [facility] 01/25/24 In Process Adm.Md 16:40 Sodium Chloride 0.9% PHA 01/25/24 Logged 16:45 Alum & Mag PHA 01/25/24 Logged Hydrox-Simethicone 16:45 Docusate Sodium PHA 01/25/24 Logged Capsule (Colace 16:45 Acetaminophen Tablet PHA 01/25/24 Logged (Tylenol Tablet) 16:45 Notify Of Changes [facility] 01/25/24 In Process From Base 16:40 Advance Directive [facility] 01/25/24 In Process 16:40 Basic Metabolic Panel LAB 01/26/24 Verified 04:00 Complete Blood Count LAB 01/26/24 Verified 04:00 Patient Condition ORDERS 01/25/24 Transmitted 16:40 Allergies [facility] 01/25/24 In Process 16:40 Ondansetron Hcl PHA 01/25/24 Logged (Zofran) 16:45 Notifalon Torres Of Changes [facility] 01/25/24 In Process From Base 16:40 Oxygen By Nasal RT 01/25/24 Transmitted Cannula 16:40 Meclizine Tablet [facility] 01/25/24 Logged (Antivert Tablet) 16:45 Metoprolol Xl PHA 01/26/24 Logged Succinate (Toprol Xl) 10:00 (Nf) Amlodipine PHA 01/26/24 Logged Besylate 10:00 Problem List: (1) HTN (hypertension) (2) Generalized weakness (3) Hypotension (4) Renal insufficiency (5) Syncope Date of Service: Jan 25, 2024 Billing Provider: ROBERT SHAIKH MD Common Visit Codes: [id number] INP/OBS CARE (HIGH) ROBERT SHAIKH MD Jan 25, 2024 17:01
--- NOTE | 2024-01-25 17:16 | DVH ---
EXAM: CT STROKE CTH INDICATION: r/o stroke TECHNIQUE: CT of the head without intravenous contrast. Radiation Dose : 1. Head: CT Dose: CTDI volume is 48.66 mGy. Dose-length product is 780.26 mGy*cm The dose indicators for CT are the volume Computed Tomography (CT) Dose Index (CTDIvol) and the Dose Length Product (DLP), and are measured in units of mGy and mGy-cm, respectively. These indicators are not patient dose, but values generated from the CT scanner acquisition factors. The report includes radiation exposure data for exposures received during this examination. COMPARISON: CT HEAD WITHOUT CONTRAST on DOS: 10/05/23, HEAD WITHOUT CONTRAST on DOS: 08/11/18 FINDINGS: There is no evidence of acute intracranial hemorrhage, extra-axial collection, mass effect, midline s hift, herniation or hydrocephalus. Diffuse brain atrophy. The ventricles, sulci and cisterns are age appropriate. The benson-white differentiation is intact. Patchy periventricular and subcortical white matter hypoattenuation is nonspecific but may be related to small vessel ischemic disease. Multiple small chronic bilateral lacunar infarcts. The visualized paranasal sinuses and mastoid air cells are clear. The surrounding soft tissues and osseous structures are unremarkable. IMPRESSION: 1. No definitive acute intracranial abnormality. 2. Multiple small chronic bilateral lacunar infarcts. 3. Chronic microvascular ischemic changes and diffuse atrophy. Radiation optimization: All CT scans at this facility use at least one of these dose optimization bj hniques: automated exposure control mA and/or kV adjustment per patient size (includes targeted exam s where dose is matched to clinical indication) or iterative reconstruction.
[2024-01-25 19:30] VITALS: PULSE 79; RESP 19; O2SAT 99
[2024-01-25] MEDS: SODIUM CHLORIDE 0.9% 1,000 ML IV SCH (19:30)
[2024-01-25 22:11] LABS: Urine Bacteria None Seen /hpf (None Seen)
[2024-01-25 22:24] LABS: Urine Blood Negative /uL (Negative); Urine Clarity Turbid (Clear); Urine Color Light-Yellow (Yellow); Urine Protein, UAD Negative (Negative); Urine Specific Gravity 1.016 (1.001-1.035); Urine Urobilinogen Normal (Negative); Urine WBC 12 /hpf (0 - 5)
[2024-01-25 22:42] VITALS: BP 145/52; PULSE 65; RESP 18; TEMP 98; O2SAT 95
[2024-01-25 23:00] VITALS: BP 145/52; PULSE 65; RESP 18; TEMP 98; O2SAT 95
[2024-01-26] VITALS (7 sets, daily range): BP systolic 93–136; BP diastolic 31–86; PULSE 61–116; RESP 18–20; TEMP 97.6–98.6; O2SAT 94–97
[2024-01-26] MEDS: ACETAMINOPHEN 325 MG TAB PO PRN (00:31)
[2024-01-26 05:36] LABS: Basophils # (auto) 0 10 ^3/uL (0-0.2); Basophils % (auto) 0.7 % (0.0-2.0); Eosinophils # (auto) 0.9 10 ^3/uL (0-0.8); Hematocrit 34.2 % (36.0-46.0); Hemoglobin 11.2 g/dL (12.2-16.2); Lymphocytes # (auto) 1.3 10 ^3/uL (0.4-5.4); Lymphocytes % (auto) 26.2 % (10.0-50.0); Mean Corpuscular Hemoglobin 28.7 pg (28.0-32.0); Mean Corpuscular Hgb Conc. 32.7 g/dL (32.0-36.0); Mean Corpuscular Volume 87.7 fL (80.0-100.0); Monocytes # (auto) 0.5 10 ^3/uL (0-1.3); Monocytes % (auto) 10.2 % (0.0-12.0); Neutrophils # (auto) 2.2 10 ^3/uL (1.6-8.6); Neutrophils % (auto) 44.2 % (37.0-80.0); Nucleated Red Blood Cells % 0.2 %; Platelet Count (auto) 141 10^3/uL (140-450); Red Blood Cells 3.89 10^6/uL (4.0-5.20); Red Cell Distribution Width 14.4 % (11.8-14.3)
[2024-01-26 05:43] LABS: Chloride 113 mmol/L (98-107); Potassium 4.2 mmol/L (3.5-5.1); Sodium 146 mmol/L (136-145)
[2024-01-26 05:44] LABS: Anion Gap 7 (5-15); Calcium 9.3 mg/dL (8.7-10.4); Carbon Dioxide 26 mmol/L (20-31)
[2024-01-26 05:49] LABS: BUN/Creatinine Ratio 33.9 (10.0-20.0); Blood Urea Nitrogen 43 mg/dL (9-23); Glucose 96 mg/dL (74-106)
[2024-01-26 06:04] LABS: Eosinophils % (auto) 18.7 % (0.0-7.0)
[2024-01-26] MEDS ORDERED: GABA-1250 PO (07:49)
[2024-01-26 07:56] LABS: Albumin 3.2 g/dL (3.2-4.8); Bilirubin, Direct 0.1 mg/dL (<0.3); Bilirubin, Total 0.3 mg/dL (0.2-1.0); Total Protein 4.9 g/dL (5.7-8.2)
[2024-01-26 08:32] LABS: INR 0.99 (0.9-1.15); Partial Thromboplastin Time 25.4 SEC (24.5-34.5); Prothrombin Time 10.5 sec (9.3-11.8)
[2024-01-26] MEDS: MAALOX PLUS or MAALOX 30 ML PO PRN (10:05)
[2024-01-26 10:08] LABS: Amphetamine Screen, Urine Neg (NEGATIVE); Barbiturate Scree,Urine Neg (NEGATIVE); Benzodiazephine Screen, Urine Pos (NEGATIVE); Cannabinoid Screen, Urine Neg (NEGATIVE); Cocaine Screen, Urine Neg (NEGATIVE); Opiate Scree,Urine Neg (NEGATIVE); Phencyclidine Screen, Urine Neg (NEGATIVE)
[2024-01-26] MEDS: METOPROLOL SUCCINATE XL 50 MG TAB PO SCH (10:08)
[2024-01-26] MEDS: amLODIPine BESYLATE 5 MG TAB PO SCH (10:09)
--- NOTE | 2024-01-26 15:29 | DVHPNRES ---
Progress Note Date Seen: Jan 26, 2024 Resident Creating Document: JOAN BRADSHAW RESIDENT Medical Necessity Reason Pt with a Central, PICC or Fol: No Subjective Review of Systems Natalie Dumas Is a 89 years old female with a PMH of HTN, CVA neuropathy presented to the ED with the chief complaints of generalized weakness and right upper arm pain for 2 months. Patient does report she has been having multiple syncopal episodes due to pain in her right upper extremity, nothing makes pain better or worse, upper limb is getting very cold and tender to touch and painful. patient does report she has been having history of vertigo but she is taking medications for that. on my assessment patient denies fever, chills, palpitations, dizziness, nausea, vomiting and other acute associated symptoms PMH: HTN, CVA, neuropathy PSH: Denies Family history: Reviewed, noncontributory Social history: Lives alone at home. Denies smoking, alcohol and other drug abuse Allergies: All pain meds including codeine, morphine and lisinopril Patient seen and examined at the bedside. Head CT showed no acute intracranial abnormalities but multiple small bilateral lacunar infarcts and microvascular ischemic changes. Reported no new complaints except right arm pain. Extremity venous study, arterial duplex scan on 01/19/2024 which showed no acute changes except right axillary artery pseudoaneurysm. Patient will be benefited from outpatient hand specialist follow up. Possible DC tomorrow Objective vital signs Vital Sign Date Time Temp Pulse Resp B/P (MAP) Pulse Ox O2 Delivery O2 Flow Rate FiO2 01/26/24 13:00 65 19 124/40 (68) 97 01/26/24 09:00 98.6 98.6 01/25/24 22:42 Room Air* 0 21 Total Intake and Output 01/25/24 01/25/24 01/26/24 14:59 22:59 06:59 Intake Total 150 ml Output Total 100 ml Balance 50 ml medications Current Medications Medications Dose Ordered Sig/Charisse Route Start Time Stop Time Status Last Admin Dose Admin Sodium Chloride 1,000 ml @ 60 mls/hr [id number] IV 01/25/24 16:45 01/25/24 19:30 60 MLS/HR Al Hydrox/Mg Hydrox/Simethicone 30 ml Q6HP PRN PO 01/25/24 16:45 01/26/24 10:05 30 ML Docusate Sodium 100 mg BIDPRN PRN PO 01/25/24 16:45 Acetaminophen 650 mg Q6HP PRN PO 01/25/24 16:45 01/26/24 06:44 650 MG Ondansetron HCl 4 mg Q4HP PRN IV 01/25/24 16:45 Meclizine HCl 12.5 mg Q8HPRN PRN PO 01/25/24 16:45 Metoprolol Succinate 50 mg DAILY PO 01/26/24 10:00 01/26/24 10:08 50 MG Amlodipine Besylate 10 mg DAILY PO 01/26/24 10:00 01/26/24 10:09 10 MG Examination Pt is lying on bed General Appearance: Alert, Oriented X3, Cooperative,mild distress HEENT: Atraumatic, Mucous membranes moist/pink Respiratory: Clear to auscultation, Normal air movement, No added sounds Cardiovascular: Regular rate, Normal S1, Normal S2, No murmurs Abdominal: Active bowel sounds, Soft, no distention, no tenderness Extremities: No edema, Normal pulses, No tenderness/swelling MSK: Right upper hands tender to touch, cold Skin: No Significant rash, except past surgical scars Neuro: Normal speech, sensorimotor deficits none Psych/Mental Status: Mental status NL, Mood NL laboratory and microbiology Laboratory Tests 01/26/24 04:37 Test 01/26/24 04:37 Range/Units Serum Glucose 96 74-106 mg/dL Labs and/or images reviewed: Labs reviewed by me, Image(s) reviewed by me Problem List/Assessment/Plan Problem List/Assessment/Plan # multiple mechanical falls likely due to syncopal # Likely vasovagal syncope due to pain - head CT showed no acute changes - continuously monitor - pain management # ? felon versus neuropathy of right upper extremity fingers - pain management - outpatient follow up with hand specialist # type 2 DM with HbA1c 6.1 - Continuously monitor # KELVIN likely vasomotor on CKD - continuously monitor lab # vertigo -continue meclizine SCD for now Maalox Cardiac diet Reconciled home meds Goals of care discussed with the patient for more than 27 minutes: Full code status Case management discussed with Dr. Ayoub, patient and nurse. Possible DC tomorrow Plan discussed with: Patient My Orders My Orders Orders - JOAN BRADSHAW RESIDENT Procedure Category Date Status Time Vitamin D, 25-Hydroxy LAB 01/26/24 In Process 07:34 Vitamin B12 LAB 01/26/24 In Process 07:34 Date of Service: Jan 26, 2024 Billing Provider: LYNN AYOUB MD Common Visit Codes: [id number] INP/OBS CARE(HIGH) JOAN BRADSHAW RESIDENT Jan 26, 2024 15:29 LYNN AYOUB MD Jan 26, 2024 21:33
[2024-01-26] MEDS: GABAPENTIN 300 MG CAP PO ONE (23:20)
[2024-01-26] MEDS: KETOROLAC TROMETH 30 MG/ML 1ML VIAL IV ONE (23:21)
[2024-01-27 01:00] VITALS: PULSE 67; RESP 17; TEMP 98.8; O2SAT 87
[2024-01-27 05:00] VITALS: BP 103/34; PULSE 62; RESP 18; TEMP 97.1; O2SAT 94
[2024-01-27 06:26] LABS: Hematocrit 31.4 % (36.0-46.0); Hemoglobin 10.4 g/dL (12.2-16.2); Mean Corpuscular Hemoglobin 28.7 pg (28.0-32.0); Mean Corpuscular Volume 86.9 fL (80.0-100.0); Platelet Count (auto) 132 10^3/uL (140-450); Red Blood Cells 3.61 10^6/uL (4.0-5.20); Red Cell Distribution Width 13.9 % (11.8-14.3); White Blood Cell 4.8 10^3/uL (4.4-10.8)
[2024-01-27 07:00] LABS: Anion Gap 7 (5-15); Carbon Dioxide 26 mmol/L (20-31); Chloride 112 mmol/L (98-107); Potassium 4.6 mmol/L (3.5-5.1); Sodium 145 mmol/L (136-145)
[2024-01-27 07:02] LABS: Band Neutrophils % (manual) 0; Basophils % (manual) 0 (0.0-2.0); Blast Cells 0; Metamyelocytes % 0; Myelocytes % 0; Promyelocytes % 0; Reactive Lymphocytes 0
[2024-01-27 07:06] LABS: Glucose 87 mg/dL (74-106)
[2024-01-27 07:07] LABS: BUN/Creatinine Ratio 28.9 (10.0-20.0); Blood Urea Nitrogen 37 mg/dL (9-23)
[2024-01-27 08:00] VITALS: PULSE 63; RESP 16; O2SAT 96
[2024-01-27 08:31] LABS: Eosinophils % (manual) 22 (0-7); Lymphocytes % (manual) 21 (10.0-50.0); Monocytes % (manual) 10 (0-12)
[2024-01-27 08:32] LABS: Platelet Estimate Adequate
[2024-01-27 09:00] VITALS: BP 111/46; PULSE 63; RESP 16; TEMP 98; O2SAT 96
--- NOTE | 2024-01-27 09:19 | DVH ---
Procedure: XY R HAND 2 VIEW XRAY 01/27/2024 08:39 AM TECHNIQUE: 2 views of the right hand Indication: Right hand pain Comparison: XY L WRIST 3+ VIEW XRAY on DOS: 07/23/22 FINDINGS: Bones: Demineralized bones. No acute fracture or dislocation. Moderate narrowing of 2nd through 5th d istal interphalangeal joints with mild marginal osteophytosis. No periarticular erosion. Soft tissues: Arterial calcification noted on the volar aspect the wrist. No radiopaque foreign body. IMPRESSION: 1. No acute osseous abnormality. 2. Mild polyarticular osteoarthritis. 3. Osteopenia. 4. Peripheral arterial disease.
--- NOTE | 2024-01-27 09:37 | DVH ---
Exam:Right upper Extremity Arterial DuplexTechnique: BIlateral arterial ultraosund Clinical History: PainComparison:31-37-17Knmtntpehf:1. 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 Consider CTA of the right upper extremity for further characterization. 2. The remainin g right upper extremity arteries are patent. 2. Bilteral velocities within normal limits.
[2024-01-27 13:00] VITALS: BP 111/47; PULSE 58; RESP 18; TEMP 97.4; O2SAT 100
[2024-01-27 13:56] VITALS: BP 111/47; PULSE 58; RESP 18; TEMP 97.4; O2SAT 100
[2024-01-27] MEDS ORDERED: ATOR40TA52 PO (14:06)
[2024-01-27] MEDS ORDERED: ASPI-325 PO (14:06)
[2024-01-27] MEDS ORDERED: MECL-90 PO (14:06)
--- NOTE | 2024-01-27 14:18 | ECG ---
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
--- NOTE | 2024-01-27 15:29 | DVHDSRES ---
Discharge Summary Date of Admission Resident Creating Document: JOAN BRADSHAW RESIDENT Jan 25, 2024 at 16:40 Date of Discharge: Jan 27, 2024 Admitting Diagnosis Generalized weakness Labs/Diagnostic Data: Laboratory Results Test 01/27/24 05:28 01/26/24 04:37 01/25/24 22:07 01/25/24 10:42 White Blood Count 4.8 10^3/uL (4.4-10.8) Red Blood Count 3.61 10^6/uL (4.0-5.20) Hemoglobin 10.4 g/dL (12.2-16.2) Hematocrit 31.4 % (36.0-46.0) Mean Corpuscular Volume 86.9 fL (80.0-100.0) Mean Corpuscular Hemoglobin 28.7 pg (28.0-32.0) Mean Corpuscular Hemoglobin Concent 33.0 g/dL (32.0-36.0) Red Cell Distribution Width 13.9 % (11.8-14.3) Platelet Count 132 10^3/uL (140-450) Mean Platelet Volume 8.7 fL (6.9-10.8) Neutrophils (%) (Auto) % (37.0-80.0) Lymphocytes (%) (Auto) % (10.0-50.0) Monocytes (%) (Auto) % (0.0-12.0) Eosinophils (%) (Auto) % (0.0-7.0) Basophils (%) (Auto) % (0.0-2.0) Neutrophils # (Auto) 10 ^3/uL (1.6-8.6) Lymphocytes # (Auto) 10 ^3/uL (0.4-5.4) Monocytes # (Auto) 10 ^3/uL (0-1.3) Differential Total Cells Counted 100.0 (100) Neutrophils % (Manual) 47 (37.0-80.0) Band Neutrophils % (Manual) 0 Lymphocytes % (Manual) 21 (10.0-50.0) Monocytes % (Manual) 10 (0-12) Eosinophils % (Manual) 22 (0-7) Basophils % (Manual) 0 (0.0-2.0) Metamyelocytes % (manual) 0 Myelocytes % (Manual) 0 Promyelocytes % (Manual) 0 Blast Cells % (Manual) 0 Reactive Lymphocytes 0 Platelet Estimate Adequate Schistocytes Few Sodium Level 145 mmol/L (136-145) Potassium Level 4.6 mmol/L (3.5-5.1) Chloride Level 112 mmol/L (98-107) Carbon Dioxide Level 26 mmol/L (20-31) Anion Gap 7 (5-15) Blood Urea Nitrogen 37 mg/dL (9-23) Creatinine 1.28 mg/dL (0.550-1.02) Glomerular Filtration Rate Calc 40 mL/min (>90) BUN/Creatinine Ratio 28.9 (10.0-20.0) Serum Glucose 87 mg/dL (74-106) Calcium Level 9.0 mg/dL (8.7-10.4) Eosinophils # (Auto) 0.9 10 ^3/uL (0-0.8) Basophils # (Auto) 0 10 ^3/uL (0-0.2) Nucleated Red Blood Cells 0.2 % Prothrombin Time 10.5 sec (9.3-11.8) Prothrombin Time INR 0.99 (0.9-1.15) Activated Partial Thromboplast Time 25.4 SEC (24.5-34.5) Hemoglobin A1c 6.1 % A1C (<5.7) Total Bilirubin 0.3 mg/dL (0.2-1.0) Direct Bilirubin 0.1 mg/dL (<0.3) Aspartate Amino Transferase (AST) 15 U/L (13-40) Alanine Aminotransferase (ALT) 11 U/L (7-40) Alkaline Phosphatase 75 U/L (46-116) B-Type Natriuretic Peptide 164.91 pg/mL (0-100) Total Protein 4.9 g/dL (5.7-8.2) Albumin 3.2 g/dL (3.2-4.8) Thyroid Stimulating Hormone (TSH) 0.56 uIU/mL (0.55-4.78) Urine Color Light-yellow (Yellow) Urine Clarity Turbid (Clear) Urine pH 5.0 (5.0-9.0) Urine Specific [place] 1.016 (1.001-1.035) Urine Protein Negative (Negative) Urine Ketones Negative (Negative) Urine Blood Negative /uL (Negative) Urine Nitrite Negative (Negative) Urine Bilirubin Negative (Negative) Urine Urobilinogen Normal mg/dL (Negative) Urine Leukocyte Esterase 2+ /uL (Negative) Urine RBC 1 /hpf (0 - 4) Urine WBC 12 /hpf (0 - 5) Urine Squamous Epithelial Cells Few /hpf (<5) Urine Bacteria None seen /hpf (None Seen) Urine Glucose Normal mg/dL (Normal) Urine Opiates Screen Neg (NEGATIVE) Urine Fentanyl Screen Neg (NEGATIVE) Urine Barbiturates Screen Neg (NEGATIVE) Urine Phencyclidine Screen Neg (NEGATIVE) Urine Amphetamines Screen Neg (NEGATIVE) Urine Benzodiazepines Screen Pos (NEGATIVE) Urine Cocaine Screen Neg (NEGATIVE) Urine Cannabinoids Screen Neg (NEGATIVE) Troponin I High Sensitivity 10 ng/L (</=34) Test 01/25/24 07:54 Ovalocytes Few Other Laboratory Tests 01/27/24 05:28 Brief Hx & Hospital Course: Natalie Dumas Is a 89 years old female with a PMH of HTN, CVA neuropathy presented to the ED with the chief complaints of generalized weakness and right upper arm pain for 2 months. Patient does report she has been having multiple syncopal episodes due to pain in her right upper extremity, nothing makes pain better or worse, upper limb is getting very cold and tender to touch and painful. patient does report she has been having history of vertigo but she is taking medications for that. on my assessment patient denies fever, chills, palpitations, dizziness, nausea, vomiting and other acute associated symptoms Patient required hospital admission for further evaluation and management multiple falls and syncope.. Head CT showed no acute intracranial abnormalities but multiple small bilateral lacunar infarcts and microvascular ischemic changes. Patient most likely have vasovagal syncope due to pain. Due to severe pain but patient was given Ketorolac and gabapentin. Extremity venous study, arterial duplex scan on 01/19/2024 which showed no acute changes except right axillary artery pseudoaneurysm. Patient will be benefited from outpatient hand specialist follow up. Due to KELVIN continuously monitored. Patient condition was improved, stable and in condition to be discharged home with optimal medical treatment. Patient was advised about healthy lifestyle habits including diet and exercise and to follow up with PCP and hand specialist to get further evaluation of hand pain. Pt is lying on bed General Appearance: Alert, Oriented X3, Cooperative,mild distress HEENT: Atraumatic, Mucous membranes moist/pink Respiratory: Clear to auscultation, Normal air movement, No added sounds Cardiovascular: Regular rate, Normal S1, Normal S2, No murmurs Abdominal: Active bowel sounds, Soft, no distention, no tenderness Extremities: No edema, Normal pulses, No tenderness/swelling MSK: Right upper hands tender to touch, cold Skin: No Significant rash, except past surgical scars Neuro: Normal speech, sensorimotor deficits none Psych/Mental Status: Mental status NL, Mood NL Operations or Procedures Right upper Extremity Arterial Duplex Impression: 1. 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 Consider CTA of the right upper extremity for further characterization. 2. The remaining right upper extremity arteries are patent. 2. Bilteral velocities within normal limits. Procedure: XY R HAND 2 VIEW XRAY 01/27/2024 08:39 AM TECHNIQUE: 2 views of the right hand IMPRESSION: 1.No acute osseous abnormality. 2. Mild polyarticular osteoarthritis. 3. Osteopenia. 4. Peripheral arterial disease. EXAM: CT STROKE CTH INDICATION: r/o stroke TECHNIQUE: CT of the head without intravenous contrast. IMPRESSION: 1. No definitive acute intracranial abnormality. 2. Multiple small chronic bilateral lacunar infarcts. 3. Chronic microvascular ischemic changes and diffuse atrophy. Condition at Discharge: Stable Final Diagnosis/Problems List # multiple mechanical falls likely due to syncopal # generalized weakness due to pain # Likely vasovagal syncope due to pain # ? felon vs neuropathy of right upper extremity fingers # type 2 DM with HbA1c 6.1 # KELVIN likely vasomotor on CKD # vertigo Discharge Disposition: Home Discharge Instruct/Medications Diet: Consistent carbohydrate, Cardiac 2g Na,low cholest, Renal Diet comment: cardiac 2g Na, low cholesterol/consistent carbohydrate Activity: No Restrictions, As Tolerated Follow Up/Referral: PCP, hand specialist Medications: Per EMR Discharge Statement: "Patient was advised to return to the ER or call 911 if any headaches, dizziness, shortness of breath, chest pain, abdominal pain, bleeding, fevers, or worsening of medical condition. Patient was counseled about treatment plan, medications, possible side effects, patientverbalized understanding. All questions were answered to the best of my ability. This discharge took greater then 30 minutes in planning, reviewing documentation, counseling the patient, and discussing with other team members." ASSESSMENT ASSESSMENT Assessment # multiple mechanical falls likely due to syncopal # Likely vasovagal syncope due to pain Date of Service: Jan 27, 2024 Billing Provider: LYNN ARCOS MD Common Visit Codes: [id number]/OBS DISCH DAY >30min JOAN BRADSHAW RESIDENT Jan 27, 2024 15:29 LYNN ARCOS MD Jan 27, 2024 20:13
== END 2024-01-27 14:45 | disposition home or self-care (01) | DRG 73 ==
LOC: ER 07:30 → EDBD 07:30 → EDUNIT# 07:30 → OVERFLOW 16:40 → WEST WING 16:50
PROVIDERS: ADMIT Student in an Organized Health Care Education/Training Program; ATTEND Student in an Organized Health Care Education/Training Program
DX: E11.40 Type 2 diabetes mellitus with diabetic neuropathy, unspecified (principal); N17.0 Acute kidney failure with tubular necrosis; L03.011 Cellulitis of right finger; E11.22 Type 2 diabetes mellitus with diabetic chronic kidney disease; N18.9 Chronic kidney disease, unspecified; I12.9 Hypertensive chronic kidney disease with stage 1 through stage 4 chronic kidney disease, or unspecified chronic kidney disease; Z86.73 Personal history of transient ischemic attack (TIA), and cerebral infarction without residual deficits; Z88.5 Allergy status to narcotic agent; Z79.899 Other long term (current) drug therapy; Z79.4 Long term (current) use of insulin; Z88.8 Allergy status to other drugs, medicaments and biological substances; R42 Dizziness and giddiness
CPT/HCPCS: 36415; 70450; 71045; 73120; 80048; 80076; 80307; 81001; 82306; 82607; 83036; 83880; 84443; 84484; 85007; 85025; 85027; 85610; 85730; 87081; 93005; G0378; J1885; Q0162

== ENCOUNTER 2024-05-16 05:32 | Inpatient (IN) | payer MEDICARE, OTHER ==
[~2024-05-16] VITALS: Ht 147.3 cm; Wt 55.8 kg
[~2024-05-16 05:32] MED LIST changes: +ASPI-325 PO; +ATOR40TA52 PO; +GABA-1250 PO; +MECL-90 PO
--- NOTE | 2024-05-16 05:44 | ECG ---
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
[2024-05-16 05:55] VITALS: PULSE 75; RESP 19; O2SAT 96
--- NOTE | 2024-05-16 05:56 | PRN ---
Misceleneous Note Note Note RAPID MEDICAL ASSESSMENT NOTE: 89-year-old female who presents with dizziness. Brief Physical exam: General: Awake, alert and oriented. No acute distress. Skin: Skin in warm, dry and intact HEENT: The head is normocephalic and atraumatic. Conjunctivae are clear without exudates or hemorrhage. Sclera is non-icteric. Neck: Normal range of motion. No JVD. Cardiac: Regular rate Respiratory: No signs of respiratory distress. No Stridor. Neurological: The patient is awake, alert and oriented to person, place, and time with normal speech. Speech is clear. There is no facial asymmetry. No upper or lower extremity drift. Psychiatric: Appropriate mood and affect. Good judgement and insight. Plan: Labs, EKG Sign out to oncoming provider pending full evaluation and re-assessment. SKYE LEW MD May 16, 2024 05:56
[2024-05-16 06:39] LABS: Hematocrit 36.3 % (36.0-46.0); Mean Corpuscular Hemoglobin 28.7 pg (28.0-32.0); Mean Corpuscular Volume 86.9 fL (80.0-100.0); Platelet Count (auto) 185 10^3/uL (140-450); Red Blood Cells 4.18 10^6/uL (4.0-5.20); Red Cell Distribution Width 13.8 % (11.8-14.3); White Blood Cell 4.8 10^3/uL (4.4-10.8)
[2024-05-16 06:47] LABS: Basophils % (manual) 0 (0.0-2.0); Blast Cells 0; Metamyelocytes % 0; Myelocytes % 0; Promyelocytes % 0; Reactive Lymphocytes 0
--- NOTE | 2024-05-16 07:03 | ED.PDOC ---
HPI Comments Vitals: Temp: 97.7F BP: 193/77 HR: 95 RR: 16 spO2: 100% Past Medical History: CHF, HTN, CVA Past Surgical History: Left nephrectomy Social History: Denies cigarette, ETOH, or drug use. Allergies: Codeine, Lisinopril, Morphine HPI: Poor Historian. 89 year old female presents to the ED with chief complaint of generalized weakness, neck pain, and dizziness. Patient reports that she had visited yesterday for dizziness and weakness, but was noted to have high blood pressure at the time. Patient relays that they eventually resolved her blood pressure issue and she was discharge, however, they discharged her with her IV still in place and her friend advised her to come to the ED for removal of it. Patient states she also has been experiencing neck pain since a fall 12 days ago. Patient notes that she last took Tylenol for pain relief at 2am. Montse ent denies any chest pain, SOB, N/V/D, or abdominal pain. REVIEW OF SYSTEMS: CONSTITUTIONAL: Denies acute: fever, diaphoresis, chills, HEAD: Denies acute: headache, photophobia Eyes: Denies acute: Double vision, vision loss, eye pain, eye discharge. EARS: Denies acute: tinnitus, hearing loss, ear discharge, ear pain, THROAT: Denies acute: sore throat, swelling, difficulty swallowing , pain with swallowing, change in voice. NECK: Denies acute: neck swelling, stiff neck. HEART: Denies acute : chest pain, palpitations, LUNGS: Denies acute: SOB, wheezing, cough, hemoptysis ABDOMEN: Denies acute: abdominal pain, Nausea, Vomiting, diarrhea, melena , hematemesis, hematochezia SKIN: Denies acute: rash, redness, lesions, itchiness. EXTREMITIES: Denies acute: calf pain, numbness, tingling, weakness, denies pain in extremity. Denies acute: Low back pain. Neuro: Denies acute: focal neurological deficit, motor or sensory focal neurological deficit, tremors, seizure like activity, confusion, change in mental status, loss of bowel or bladder function, cauda equina like symptoms. : Denies acute: dysuria, hematuria, flank pain, increase in urinary frequency. PSYCH: Denies acute: hallucination, suicidal ideation, homicidal ideation. FEMALE: Denies acute: abnormal vaginal bleeding, foul odor, unusual discharge. PHYSICAL EXAM: General: no acute distress, awake and alert. Head: normocephalic, atraumatic. Neck: supple, trachea is midline, no swelling. Throat: Normal phonation. Eyes:, no erythema, no purulent discharge, no proptosis, no icterus. Heart: regular rate, regular rhythm, no significant murmur appreciated. Lungs: no apparent respiratory distress, Able to speak in full sentences. No wheezing, no rhonchi, no crackles. No stridors Clear to auscultation bilaterally. Abdomen: non tender to palpation, non distended, soft, no guarding, no rebound, + bowel sounds. Neuro: Awake, Alert, oriented to name, self, situation, follows commands GCS=15. Speech is normal. Skin: no petechia, no purpura, no cyanosis, non-pale, not jaundice. Lower extremities: --no - Pitting edema no deformity, no focal swelling, no calf TTP. Makes eye contact. moves all four extremities. Face: no apparent facial droop. ED COURSE: Chief Complaint: Dizziness Time Seen by MD: 07:02 Primary Care Provider: UNKNOWN NAME Reviewed Notes: Nurses Notes, Medications, Allergies Allergies: Coded Allergies: Morphine (Verified Allergy, Severe, 07/23/22) Lisinopril (Verified Allergy, Unknown, 07/23/22) Uncoded Allergies: ALL PAIN MEDS (Allergy, Severe, 04/23/18) CODIENE (Adverse Reaction, Intermediate, "MAKES ME CRAZY", 01/22/10) Home Meds Active Scripts Atorvastatin Calcium (ATORVASTATIN CALCIUM) 40 Mg Tab, 1 TAB PO QPM for 90 Days, #90 TAB 3 Refills Prov:JENNY MCKEON RESIDENT 01/27/24 Aspirin (Aspirin Low Dose) 81 Mg Tab, 81 MG PO DAILY for 30 Days, #30 TAB Prov:JENNY MCKEON 01/27/24 Meclizine Hcl (Meclizine Hcl) 25 Mg Tab, 12.5 MG PO Q8HPRN PRN for 30 Days, #45 TAB Prov:JENNY MCKEON RESIDENT 01/27/24 Diphenhydramine Hcl (Benadryl Allergy) 25 Mg Cap, 1 CAP PO QPM, #7 CAP 1 Refill Prov:CECE REDDY MD 11/19/22 Metoprolol Succinate (Metoprolol Succinate Er) 50 Mg Tab, 1 TAB PO DAILY, #30 TAB 5 Refills Prov:CECE REDDY MD 11/19/22 Amlodipine Besylate (Amlodipine Besylate) 10 Mg Tab, 1 TAB PO DAILY, #30 TAB 5 Refills Prov:CECE REDDY MD 11/19/22 Reported Medications Gabapentin (Gabapentin) 300 Mg Cap, 300 MG PO DAILY for 30 Days, MG 01/26/24 Information Source: Patient Mode of Arrival: EMS Was a procedure done? Was a procedure done?: No CP Differential Dx Differential Diagnosis: N/A Differential Diagnosis: Other (DDX include renal disease, thyroid disease, electrolyte abnormality, increased salt intake, medications non-compliance, undiagnosed HTN, Hypertensive crisis, hypertensive urgency., drug toxicity.) X-Ray, Labs, Meds, VS Vital Signs Date Time Temp Pulse Resp B/P (MAP) Pulse Ox O2 Delivery O2 Flow Rate FiO2 05/16/24 09:00 98.3 63 13 153/59 (90) 100 98.3 05/16/24 08:37 72 05/16/24 08:00 83 19 95 Nasal Cannula* 2 28 05/16/24 07:00 97.9 72 12 169/65 (99) 94 97.9 05/16/24 05:55 97.9 75 19 170/64 (99) 96 97.9 05/16/24 05:55 75 19 96 Room Air* 0 21 05/16/24 05:38 97.7 95 16 193/77 (115) 100 97.7 05/16/24 05:35 83 Lab Test 05/16/24 07:30 05/16/24 06:23 Range/Units Lactic Acid Level 2.2 *H 0.4-2.0 mmol/L Troponin I High Sensitivity 8 9 </=34 ng/L White Blood Count 4.8 4.4-10.8 10^3/uL Red Blood Count 4.18 4.0-5.20 10^6/uL Hemoglobin 12.0 L 12.2-16.2 g/dL Hematocrit 36.3 36.0-46.0 % Mean Corpuscular Volume 86.9 80.0-100.0 fL Mean Corpuscular Hemoglobin 28.7 28.0-32.0 pg Mean Corpuscular Hemoglobin Concent 33.0 32.0-36.0 g/dL Red Cell Distribution Width 13.8 11.8-14.3 % Platelet Count 185 140-450 10^3/uL Mean Platelet Volume 8.4 6.9-10.8 fL Neutrophils (%) (Auto) 37.0-80.0 % Lymphocytes (%) (Auto) 10.0-50.0 % Monocytes (%) (Auto) 0.0-12.0 % Eosinophils (%) (Auto) 0.0-7.0 % Basophils (%) (Auto) 0.0-2.0 % Neutrophils # (Auto) 1.6-8.6 10 ^3/uL Lymphocytes # (Auto) 0.4-5.4 10 ^3/uL Monocytes # (Auto) 0-1.3 10 ^3/uL Differential Total Cells Counted 100.0 100 Neutrophils % (Manual) 53 37.0-80.0 Band Neutrophils % (Manual) 1 Lymphocytes % (Manual) 19 10.0-50.0 Monocytes % (Manual) 5 0-12 Eosinophils % (Manual) 22 H 0-7 Basophils % (Manual) 0 0.0-2.0 Metamyelocytes % (manual) 0 Myelocytes % (Manual) 0 Promyelocytes % (Manual) 0 Blast Cells % (Manual) 0 Reactive Lymphocytes 0 Platelet Estimate Adequate Sodium Level 142 136-145 mmol/L Potassium Level 3.9 3.5-5.1 mmol/L Chloride Level 106 98-107 mmol/L Carbon Dioxide Level 27 20-31 mmol/L Anion Gap 9 5-15 Blood Urea Nitrogen 23 9-23 mg/dL Creatinine 1.19 H 0.550-1.02 mg/dL Glomerular Filtration Rate Calc 44 >90 mL/min BUN/Creatinine Ratio 19.3 10.0-20.0 Serum Glucose 106 74-106 mg/dL Calcium Level 9.8 8.7-10.4 mg/dL Total Bilirubin 0.4 0.2-1.0 mg/dL Aspartate Amino Transferase (AST) 26 13-40 U/L Alanine Aminotransferase (ALT) 23 7-40 U/L Alkaline Phosphatase 108 46-116 U/L B-Type Natriuretic Peptide 270.29 0-100 pg/mL Total Protein 6.5 5.7-8.2 g/dL Albumin 4.2 3.2-4.8 g/dL Current Medications Medications (Trade) Dose Ordered Sig/Charisse Route Start Time Stop Time Status Last Admin Famotidine (Pepcid Injection) 20 mg ONCE ONCE IV 05/16/24 08:00 05/16/24 08:01 DC 05/16/24 08:14 [place] [address] Ph: [phone] DIAGNOSTIC IMAGING Diagnostic Imaging Report : [id number] Signed PATIENT: RODGER JAY ACCT: [id number] UNIT: [id number] : 01/29/1934 LOC: ER ROOM / BED: / AGE / SEX: 89 / F ADM STATUS: REG ER SERVICE 1 ORDERING PHYSICIAN: ELIZABETH HELMS DO PROCEDURE(s): CXRP - CHEST PORTABLE REASON: HTN, dizzy ORDER NUMBER(s): [id number], ACCESSION NUMBER(s): [id number] EXAM: XR Chest, 1 View CLINICAL INDICATION: HTN, dizzy TECHNIQUE: Frontal view of the chest. COMPARISON: XY CHEST PORTABLE on DOS: 01/25/24, XY CHEST PORTABLE on DOS: 10/05/23, XY CHEST PORTABLE on DOS: 11/17/22, XY CHEST XRAY 1 VIEW on DOS: 07/23/22, CXRP on DOS: 07/25/21 FINDINGS: LUNGS AND PLEURAL SPACES: Mild pulmonary congestion. No consolidation. No pneumothorax. HEART: Unremarkable. No cardiomegaly. MEDIASTINUM: Unremarkable. Normal mediastinal contour. BONES/JOINTS: Unremarkable. No acute fracture. OTHER FINDINGS: . IMPRESSION: Mild pulmonary congestion. . ATED BY: JULIET OCAMPO MD DICTATED DATE/TIME: 05/16/24705 SIGNED BY: JULIET OCAMPO MD SIGNED DATE/TIME: 05/16/24705 CC: [place] [address] Ph: [phone] DIAGNOSTIC IMAGING Diagnostic Imaging Report : [id number] Signed PATIENT: RODGER JAY ACCT: [id number] UNIT: [id number] : 01/29/1934 LOC: ER ROOM / BED: / AGE / SEX: 89 / F ADM STATUS: REG ER SERVICE 1 ORDERING PHYSICIAN: ELIZABETH HELMS DO PROCEDURE(s): HWOCT - HEAD WITHOUT CONTRAST REASON: dizzy, htn ORDER NUMBER(s): [id number], ACCESSION NUMBER(s): [id number] EXAM: CT Head Without Intravenous Contrast CLINICAL INDICATION: dizzy, htn TECHNIQUE: Axial computed tomography images of the head/brain without intravenous contrast. This CT exam was performed using one or more of the following dose reduction techniques: automated exposure control, adjustment of the mA and/or kV according to patient size, and/or use of iterative reconstruction technique. CONTRAST: RADIATION DOSE: CTDIvol = 47.46 mGy, DLP = 846.89 mGy-cm COMPARISON: CT STROKE CTH on DOS: 01/25/24, CT HEAD WITHOUT CONTRAST on DOS: 10/05/23, CT HEAD WITHOUT CONTRAST on DOS: 11/17/22, CT HEAD WITHOUT CONTRAST on DOS: 07/23/22, HEAD WITHOUT CONTRAST on DOS: 08/11/18 FINDINGS: BRAIN AND EXTRA-AXIAL SPACES: Unchanged previously described lacunar infarctions, bilaterally. The cerebral and cerebellar sulci are prominent consistent with brain atrophy. Areas of decreased attenuation in the deep cerebral white matter are consistent with small vessel ischemic/degenerative changes. No acute intracranial hemorrhage, midline shift or mass effect. If symptoms persist, further evaluation with MRI is recommended. BONES/JOINTS: Unremarkable. No acute fracture. SOFT TISSUES: Unremarkable. SINUSES: Unremarkable as visualized. No acute sinusitis. MASTOID AIR CELLS: Unremarkable as visualized. No mastoid effusion. OTHER FINDINGS: . IMPRESSION: 1. Generalized brain atrophy. 2. Small vessel ischemic/degenerative changes. 3. No acute intracranial hemorrhage, midline shift or mass effect. If symptoms persist, further evaluation with MRI is recommended. ATED BY: JULIET OCAMPO MD DICTATED DATE/TIME: 05/16/24707 SIGNED BY: JULIET OCAMPO MD SIGNED DATE/TIME: 05/16/24707 CC: Time of 1ST Reevaluation: 08:02 Reevaluation 1ST: Unchanged Time of 2ND Reevaluation: 18:32 Reevaluation 2ND: Improved Patient Education/Counseling: Diagnosis, Treatment Family Education/Counseling: No Family Present Comments Patient presented with the above HPI.-hypertension-----workup was initiated. patient was found with the above mentioned diagnosis. the following medications were ordered: please refer to order lists of meds and tests obtained by myself Dr. Helms. Patient ED course and VS have been stabilized. Patient has been reassessed in the ED and remained in a stable condition. Pertinent incidental findings were discussed with the patient and/or family. Patient/family voices understanding and is agreeable with plan. Patient has been observed in the ED adequate length of time to insure improvement/stability. Escalation of care considered: Consideration of escalation to observation or admission Patient was ADMITTED to the medicine team for further evaluation and treatment of their presentation. All the reports of any imaging studies that were ordered by myself were reviewed by myself. Departure 1 Departure Time of Disposition: 07:56 Impression: Primary Impression: Hypertensive urgency Disposition: 09 ADMITTED INPATIENT Admit to: Tele Condition: Guarded Discharged With: Self Critical Care Note Critical Care Time?: No Heart Score Heart Score: Heart Score Response (Comments) Value History Slightly Suspicious 0 EKG Normal 0 Age >65 2 Risk Factors >3 or Hx ASHD 2 Troponin Normal limit 0 Total 4 I personally scribed for ELIZABETH HELMS DO ([email or web address]) on 05/16/24 at 07:02. Electronically submitted by Julio Fernandez ([email or web address]). I personally scribed for ELIZABETH HELMS DO ([email or web address]) on 05/16/24 at 07:37. Electronically submitted by Julio Fernandez ([email or web address]). I personally scribed for ELIZABETH HELMS DO ([email or web address]) on 05/16/24 at 07:47. Electronically submitted by Julio Fernandez ([email or web address]). ELIZABETH HELMS DO May 16, 2024 07:02
--- NOTE | 2024-05-16 07:09 | DVH ---
EXAM: XR Chest, 1 View CLINICAL INDICATION: HTN, dizzy TECHNIQUE: Frontal view of the chest. COMPARISON: XY CHEST PORTABLE on DOS: 01/25/24, XY CHEST PORTABLE on DOS: 10/05/23, XY CHEST PORTABLE on DOS: 11/17/22, XY CHEST XRAY 1 VIEW on DOS: 07/23/22, CXRP on DOS: 07/25/21 FINDINGS: LUNGS AND PLEURAL SPACES: Mild pulmonary congestion. No consolidation. No pneumothorax. HEART: Unremarkable. No cardiomegaly. MEDIASTINUM: Unremarkable. Normal mediastinal contour. BONES/JOINTS: Unremarkable. No acute fracture. OTHER FINDINGS: . IMPRESSION: Mild pulmonary congestion. .
--- NOTE | 2024-05-16 07:11 | DVH ---
EXAM: CT Head Without Intravenous Contrast CLINICAL INDICATION: dizzy, htn TECHNIQUE: Axial computed tomography images of the head/brain without intravenous contrast. This CT exam was performed using one or more of the following dose reduction techniques: automated exposure control, adjustment of the mA and/or kV according to patient size, and/or use of iterative reconstru ction technique. CONTRAST: RADIATION DOSE: CTDIvol = 47.46 mGy, DLP = 846.89 mGy-cm COMPARISON: CT STROKE CTH on DOS: 01/25/24, CT HEAD WITHOUT CONTRAST on DOS: 10/05/23, CT HEAD WITHOU T CONTRAST on DOS: 11/17/22, CT HEAD WITHOUT CONTRAST on DOS: 07/23/22, HEAD WITHOUT CONTRAST on DOS: FINDINGS: BRAIN AND EXTRA-AXIAL SPACES: Unchanged previously described lacunar infarctions, bilaterally. The cerebral and cerebellar sulci are prominent consistent with brain atrophy. Areas of decreased atten uation in the deep cerebral white matter are consistent with small vessel ischemic/degenerative hartman es. No acute intracranial hemorrhage, midline shift or mass effect. If symptoms persist, further rajeev luation with MRI is recommended. BONES/JOINTS: Unremarkable. No acute fracture. SOFT TISSUES: Unremarkable. SINUSES: Unremarkable as visualized. No acute sinusitis. MASTOID AIR CELLS: Unremarkable as visualized. No mastoid effusion. OTHER FINDINGS: . IMPRESSION: 1. Generalized brain atrophy. 2. Small vessel ischemic/degenerative changes. 3. No acute intracranial hemorrhage, midline shift or mass effect. If symptoms persist, further eval uation with MRI is recommended.
[2024-05-16 07:12] LABS: Alanine Aminotransferase 23 U/L (7-40); Albumin 4.2 g/dL (3.2-4.8); Alkaline Phosphatase 108 U/L (46-116); Anion Gap 9 (5-15); Aspartate Aminotransferase 26 U/L (13-40); BUN/Creatinine Ratio 19.3 (10.0-20.0); Bilirubin, Total 0.4 mg/dL (0.2-1.0); Calcium 9.8 mg/dL (8.7-10.4); Carbon Dioxide 27 mmol/L (20-31); Chloride 106 mmol/L (98-107); Potassium 3.9 mmol/L (3.5-5.1); Sodium 142 mmol/L (136-145); Total Protein 6.5 g/dL (5.7-8.2)
[2024-05-16 07:14] LABS: Blood Urea Nitrogen 23 mg/dL (9-23); Glucose 106 mg/dL (74-106)
[2024-05-16 08:00] VITALS: PULSE 83; RESP 19; O2SAT 95
[2024-05-16] MEDS: FAMOTIDINE (10MG/ML) 2ML VL IV ONE (08:14)
[2024-05-16 08:51] LABS: Lactic Acid w/Reflex 2.2 mmol/L (0.4-2.0)
[2024-05-16 09:17] LABS: Band Neutrophils % (manual) 1; Eosinophils % (manual) 22 (0-7); Lymphocytes % (manual) 19 (10.0-50.0); Monocytes % (manual) 5 (0-12)
[2024-05-16 09:18] LABS: Platelet Estimate Adequate
[2024-05-16] MEDS ORDERED: hydrALAZINE HCL 20 MG/ML VL IV PRN (10:00)
[2024-05-16] MEDS ORDERED: ONDANSETRON HCL 4 MG/2 ML VIAL IV PRN (10:00)
--- NOTE | 2024-05-16 10:18 | DVHHP2 ---
History of Present Illness Reason for Visit: High blood pressure History of Present Illness Natalie Dumas is an 89-year-old female with past medical history of hypertension, CKD, CHF, hard of hearing, 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 Patient reports that she went to the urgent care yesterday was given 2 pills to take because her systolic blood pressure was 189-229. Patient also reports that she has been having shakiness for the last 20 minutes and also itching for the last 1 year. Patient currently denies any chest pain, shortness of breath, fever, chills, recent trauma or injury, recent sick contacts, recent travels, recent ingestion of spoiled food, abdominal pain, nausea, vomiting, and diarrhea. Patient reports that when she has lower extremity muscle cramps she takes mustard to help relieve the pain. Patient also reports that when she was at [facility] yesterday they had placed a peripheral IV on her right forearm and left that in place. Patient reports she is not sure why it was still there. Upon examination patient was in the restroom was able to walk onto the wheelchair with support and get up out of the wheelchair and walk to her [facility] bed in 11 in ED. Cardiovascular: CHF, HTN FINANCE INTERN: CVA Renal/: Chronic renal insuff Past Medical History Hard of hearing Past Surgical History: Other (Left nephrectomy) Family History: None Smoke: No ALCOHOL: none Drugs: None Lives: Alone Domestic Violence: Neg Review of Systems Constitutional: Yes: Weakness, Other (Dizziness) Musculoskeletal: leg pain Allergies: Coded Allergies: Morphine (Verified Allergy, Severe, 07/23/22) Lisinopril (Verified Allergy, Unknown, 07/23/22) Uncoded Allergies: ALL PAIN MEDS (Allergy, Severe, 04/23/18) CODIENE (Adverse Reaction, Intermediate, "MAKES ME CRAZY", 01/22/10) Medications Current Medications Medications Dose Ordered Sig/Charisse Route Start Time Stop Time Status Last Admin Dose Admin Ondansetron HCl 4 mg Q4HP PRN IV 05/16/24 10:00 UNV Enoxaparin Sodium 30 mg DAILY SC 05/16/24 10:00 UNV Acetaminophen 650 mg Q6HP PRN PO 05/16/24 10:00 UNV Hydralazine HCl 10 mg Q6HP PRN IV 05/16/24 10:00 UNV Exam Vital Signs Vital Signs Date Time Temp Pulse Resp B/P (MAP) Pulse Ox O2 Delivery O2 Flow Rate FiO2 05/16/24 09:00 98.3 63 13 153/59 (90) 100 98.3 05/16/24 05:55 Room Air* 0 21 General Appearance: Alert, Oriented X3, Cooperative, No acute distress HEENT: Atraumatic, PERRLA, EOMI, Mucous membr. moist/pink Respiratory: Clear to auscultation, Normal air movement Cardiovascular: Normal S1, Normal S2 Abdominal: Normal bowel sounds, Soft, No tenderness, No hepatospenomegaly Extremities: No clubbing, No cyanosis Skin: No significant lesion Neuro: Normal speech, Normal tone, Sensation intact Psych/Mental Status: Mental status NL, Other (Anxiousness) Labs/Xrays Labs Test 05/16/24 07:30 05/16/24 06:23 Range/Units Lactic Acid Level 2.2 *H 0.4-2.0 mmol/L Troponin I High Sensitivity 8 </=34 ng/L White Blood Count 4.8 4.4-10.8 10^3/uL Red Blood Count 4.18 4.0-5.20 10^6/uL Hemoglobin 12.0 L 12.2-16.2 g/dL Hematocrit 36.3 36.0-46.0 % Mean Corpuscular Volume 86.9 80.0-100.0 fL Mean Corpuscular Hemoglobin 28.7 28.0-32.0 pg Mean Corpuscular Hemoglobin Concent 33.0 32.0-36.0 g/dL Red Cell Distribution Width 13.8 11.8-14.3 % Platelet Count 185 140-450 10^3/uL Mean Platelet Volume 8.4 6.9-10.8 fL Neutrophils (%) (Auto) 37.0-80.0 % Lymphocytes (%) (Auto) 10.0-50.0 % Monocytes (%) (Auto) 0.0-12.0 % Eosinophils (%) (Auto) 0.0-7.0 % Basophils (%) (Auto) 0.0-2.0 % Neutrophils # (Auto) 1.6-8.6 10 ^3/uL Lymphocytes # (Auto) 0.4-5.4 10 ^3/uL Monocytes # (Auto) 0-1.3 10 ^3/uL Differential Total Cells Counted 100.0 100 Neutrophils % (Manual) 53 37.0-80.0 Band Neutrophils % (Manual) 1 Lymphocytes % (Manual) 19 10.0-50.0 Monocytes % (Manual) 5 0-12 Eosinophils % (Manual) 22 H 0-7 Basophils % (Manual) 0 0.0-2.0 Metamyelocytes % (manual) 0 Myelocytes % (Manual) 0 Promyelocytes % (Manual) 0 Blast Cells % (Manual) 0 Reactive Lymphocytes 0 Platelet Estimate Adequate Sodium Level 142 136-145 mmol/L Potassium Level 3.9 3.5-5.1 mmol/L Chloride Level 106 98-107 mmol/L Carbon Dioxide Level 27 20-31 mmol/L Anion Gap 9 5-15 Blood Urea Nitrogen 23 9-23 mg/dL Creatinine 1.19 H 0.550-1.02 mg/dL Glomerular Filtration Rate Calc 44 >90 mL/min BUN/Creatinine Ratio 19.3 10.0-20.0 Serum Glucose 106 74-106 mg/dL Calcium Level 9.8 8.7-10.4 mg/dL Total Bilirubin 0.4 0.2-1.0 mg/dL Aspartate Amino Transferase (AST) 26 13-40 U/L Alanine Aminotransferase (ALT) 23 7-40 U/L Alkaline Phosphatase 108 46-116 U/L B-Type Natriuretic Peptide 270.29 0-100 pg/mL Total Protein 6.5 5.7-8.2 g/dL Albumin 4.2 3.2-4.8 g/dL EXAM: CT Head Without Intravenous Contrast CLINICAL INDICATION: dizzy, htn TECHNIQUE: Axial computed tomography images of the head/brain without intravenous contrast. This CT exam was performed using one or more of the following dose reduction techniques: automated exposure control, adjustment of the mA and/or kV according to patient size, and/or use of iterative reconstruction technique. CONTRAST: RADIATION DOSE: CTDIvol = 47.46 mGy, DLP = 846.89 mGy-cm COMPARISON: CT STROKE CTH on DOS: 01/25/24, CT HEAD WITHOUT CONTRAST on DOS: 10/05/23, CT HEAD WITHOUT CONTRAST on DOS: 11/17/22, CT HEAD WITHOUT CONTRAST on DOS: 07/23/22, HEAD WITHOUT CONTRAST on DOS: 08/11/18 FINDINGS: BRAIN AND EXTRA-AXIAL SPACES: Unchanged previously described lacunar infarctions, bilaterally. The cerebral and cerebellar sulci are prominent consistent with brain atrophy. Areas of decreased attenuation in the deep cerebral white matter are consistent with small vessel ischemic/degenerative changes. No acute intracranial hemorrhage, midline shift or mass effect. If symptoms persist, further evaluation with MRI is recommended. BONES/JOINTS: Unremarkable. No acute fracture. SOFT TISSUES: Unremarkable. SINUSES: Unremarkable as visualized. No acute sinusitis. MASTOID AIR CELLS: Unremarkable as visualized. No mastoid effusion. OTHER FINDINGS: . IMPRESSION: 1. Generalized brain atrophy. 2. Small vessel ischemic/degenerative changes. 3. No acute intracranial hemorrhage, midline shift or mass effect. If symptoms persist, further evaluation with MRI is recommended. EXAM: XR Chest, 1 View CLINICAL INDICATION: HTN, dizzy TECHNIQUE: Frontal view of the chest. COMPARISON: XY CHEST PORTABLE on DOS: 01/25/24, XY CHEST PORTABLE on DOS: 10/05/23, XY CHEST PORTABLE on DOS: 11/17/22, XY CHEST XRAY 1 VIEW on DOS: 07/23/22, CXRP on DOS: 07/25/21 FINDINGS: LUNGS AND PLEURAL SPACES: Mild pulmonary congestion. No consolidation. No pneumothorax. HEART: Unremarkable. No cardiomegaly. MEDIASTINUM: Unremarkable. Normal mediastinal contour. BONES/JOINTS: Unremarkable. No acute fracture. OTHER FINDINGS: . IMPRESSION: Mild pulmonary congestion. . Assessment/Plan Assessment/Plan Assessment Hypertensive urgency Dizziness Generalized weakness KELVIN Bilateral lower extremity pain rule out DVT History of hypertension History of hard of hearing History of CVA without any deficits History of CKD History of CHF History of left nephrectomy Plan Admit to med surge PPIs given ED EKG P.r.n. antihypertensives Lactic UA CT head noted BNP Chest x-ray noted Manual differential Troponin Bilateral lower extremity venous ultrasound ordered DVT prophylaxis-Lovenox Strict I&Os Daily weights Home meds reconciled Rounding hospitalist to decide if MRI or Neuro consult warranted for imaging results Plan discussed with: Patient My Orders Orders - CIERRA AGUAYO [employer]AIN [employer]PLITTER Procedure Category Date Status Time Admit ADMIT 05/16/24 Transmitted 09:57 Allergies ARNOLDO 05/16/24 In Process 09:57 Code Status CODE 05/16/24 Transmitted 09:57 Ondansetron Hcl PHA 05/16/24 Logged (Zofran) 10:00 Complete Blood Count LAB 05/17/24 Verified 04:00 Comprehensive LAB 05/17/24 Verified Metabolic Panel 04:00 Cardiac DIET 05/16/24 Transmitted Diet-2gna,Lofat,Lochol Lunch Enoxaparin Sodium PHA 05/16/24 Logged (Lovenox) 10:00 Acetaminophen Tablet PHA 05/16/24 Logged (Tylenol Tablet) 10:00 Bilat Lower Dvt US 05/16/24 Logged 09:57 Hydralazine Injection PHA 05/16/24 Logged (Apresoline Inject 10:00 Date of Service: May 16, 2024 Billing Provider: CIERRA AGUAYO Common Visit Codes: [id number] INP/OBS CARE (HIGH) CIERRA AGUAYO May 16, 2024 10:18
[2024-05-16] MEDS: MECLIZINE HCL 25 MG TAB PO PRN (10:55)
[2024-05-16] MEDS: ACETAMINOPHEN 325 MG TAB PO PRN (10:55)
[2024-05-16] MEDS: cefTRIAXone 1GM/50ML D5W 50 ML IV ONE (10:56)
[2024-05-16] MEDS: ENOXAPARIN SOD 30 MG/0.3 ML SYRINGE SC SCH (10:56)
--- NOTE | 2024-05-16 11:01 | DVH ---
Bilateral lower extremity venous duplex Clinical History: pain in le Comparison: US BILAT LOWER DVT on DOS: 11/17/22 Technique: Duplex Doppler evaluation of the deep venous systems of both lower extremities from the co mmon femoral veins to the popliteal veins including color Doppler and spectral/pulsed waveform analys is was performed. Findings: RIGHT SIDE: The common femoral vein demonstrates appropriate compressibility and waveform variability. There is compressibility/patency of the great saphenous vein at the proximal thigh. The femoral vein demonstrates appropriate compressibility and waveform variability. The deep femoral vein demonstrates appropriate compressibility and waveform variability. The popliteal vein demonstrates appropriate compressibility and waveform variability. There is color flow at the tibioperoneal trunk and in the posterior tibial vein. LEFT SIDE: The common femoral vein demonstrates appropriate compressibility and waveform variability. There is compressibility/patency of the great saphenous vein at the proximal thigh. The femoral vein demonstrates appropriate compressibility and waveform variability. The deep femoral vein demonstrates appropriate compressibility and waveform variability. The popliteal vein demonstrates appropriate compressibility and waveform variability. There is color flow at the tibioperoneal trunk and in the posterior tibial vein. Impression: 1. No right or left femoropopliteal venous thrombosis.
[2024-05-16 11:51] VITALS: BP 163/71; PULSE 89; RESP 13; TEMP 98.3; O2SAT 100
[2024-05-16 12:49] LABS: Erythrocyte Sedimentation Rate 8 mm/hr (0-20)
[2024-05-16 15:58] VITALS: BP 129/48; PULSE 77; RESP 18; TEMP 98; O2SAT 95
[2024-05-16 16:18] LABS: Urine Bacteria None Seen /hpf (None Seen)
[2024-05-16 16:32] LABS: Urine Blood Negative /uL (Negative); Urine Clarity Clear (Clear); Urine Color Light-Yellow (Yellow); Urine Protein, UAD Negative (Negative); Urine Specific Gravity 1.015 (1.001-1.035); Urine Squamous Epithelial Cell FEW /hpf (<5); Urine Urobilinogen Normal (Negative); Urine WBC 1 /HPF (0-5); Urine pH 6.5 (5.0-9.0)
[2024-05-16 16:46] VITALS: PULSE 77; RESP 16; O2SAT 99
[2024-05-16] MEDS: diphenhdrAMINE HCL 25 MG CAP PO SCH (18:16)
[2024-05-16 21:00] VITALS: BP 134/55; PULSE 78; RESP 19; TEMP 98.6; O2SAT 98
[2024-05-16] MEDS: ATORVASTATIN 20 MG TAB PO SCH (21:36)
[2024-05-17] VITALS (8 sets, daily range): BP systolic 104–149; BP diastolic 36–59; PULSE 60–78; RESP 16–19; TEMP 97.2–98.5; O2SAT 92–99
[2024-05-17 07:07] LABS: Hematocrit 33.9 % (36.0-46.0); Hemoglobin 11.3 g/dL (12.2-16.2); Mean Corpuscular Hemoglobin 29.6 pg (28.0-32.0); Mean Corpuscular Hgb Conc. 33.4 g/dL (32.0-36.0); Mean Corpuscular Volume 88.5 fL (80.0-100.0); Platelet Count (auto) 166 10^3/uL (140-450); Red Blood Cells 3.83 10^6/uL (4.0-5.20); Red Cell Distribution Width 13.9 % (11.8-14.3); White Blood Cell 4.5 10^3/uL (4.4-10.8)
[2024-05-17 07:20] LABS: Band Neutrophils % (manual) 0; Basophils % (manual) 0 (0.0-2.0); Blast Cells 0; Metamyelocytes % 0; Myelocytes % 0; Promyelocytes % 0; Reactive Lymphocytes 0
[2024-05-17 07:30] LABS: Alanine Aminotransferase 25 U/L (7-40); Albumin 3.6 g/dL (3.2-4.8); Alkaline Phosphatase 94 U/L (46-116); Anion Gap 8 (5-15); Aspartate Aminotransferase 28 U/L (13-40); BUN/Creatinine Ratio 17.3 (10.0-20.0); Bilirubin, Total 0.4 mg/dL (0.2-1.0); Blood Urea Nitrogen 19 mg/dL (9-23); Calcium 9.2 mg/dL (8.7-10.4); Carbon Dioxide 26 mmol/L (20-31); Glucose 93 mg/dL (74-106); Sodium 142 mmol/L (136-145)
[2024-05-17 07:31] LABS: Chloride 108 mmol/L (98-107); Total Protein 5.7 g/dL (5.7-8.2)
[2024-05-17 08:22] LABS: Eosinophils % (manual) 26 (0-7); Lymphocytes % (manual) 19 (10.0-50.0); Monocytes % (manual) 8 (0-12); Platelet Estimate Adequate
[2024-05-17] MEDS: ASPirin-EC 81 mg tab PO SCH (08:52)
[2024-05-17] MEDS: METOPROLOL SUCCINATE XL 50 MG TAB PO SCH (08:53)
[2024-05-17] MEDS: GABAPENTIN 300 MG CAP PO SCH (08:53)
[2024-05-17] MEDS: amLODIPine BESYLATE 5 MG TAB PO SCH (08:53)
[2024-05-17] MEDS: cefTRIAXone 1GM/50ML D5W 50 ML IV SCH (08:54)
[2024-05-17] MEDS: diphenhdrAMINE HCL 25 MG CAP PO PRN (12:05)
--- NOTE | 2024-05-17 15:42 | DVHPN2 ---
Subjective Seen and examined at bedside, will start Lasix for fluid overload. Changes from previous H/P or p: No Changes Musculoskeletal: leg pain Objective Vitals Vital Signs Date Time Temp Pulse Resp B/P (MAP) Pulse Ox O2 Delivery O2 Flow Rate FiO2 05/17/24 13:00 97.6 71 16 104/48 (66) 97 97.6 05/17/24 08:00 Room Air* 0 21 Intake/Output Intake and Output 05/17/24 07:00 Intake Total 400 ml Output Total 800 ml Balance -400 ml Intake Oral 350 ml IV Total 50 ml Output Urine Total 800 ml # Voids 4 General Appearance: Alert, Oriented X3, Cooperative HEENT: Atraumatic Lungs: Other (creps) Cardiovascular: Regular rate, Normal S1, Normal S2 Abdomen: Normal bowel sounds, Soft Rectal: Deferred Psych/Mental Status: Mental status NL Medications Current Medications Medications Dose Ordered Sig/Charisse Route Start Time Stop Time Status Last Admin Dose Admin Ondansetron HCl 4 mg Q4HP PRN IV 05/16/24 10:00 Enoxaparin Sodium 30 mg DAILY SC 05/16/24 10:00 05/17/24 08:54 30 MG Acetaminophen 650 mg Q6HP PRN PO 05/16/24 10:00 05/16/24 21:43 650 MG Hydralazine HCl 10 mg Q6HP PRN IV 05/16/24 10:00 Aspirin 81 mg DAILY PO 05/17/24 10:00 05/17/24 08:52 81 MG Gabapentin 300 mg DAILY PO 05/17/24 10:00 05/17/24 08:53 300 MG Meclizine HCl 12.5 mg Q8HPRN PRN PO 05/16/24 10:15 05/16/24 10:55 12.5 MG Metoprolol Succinate 50 mg DAILY PO 05/17/24 10:00 05/17/24 08:53 50 MG Amlodipine Besylate 10 mg DAILY PO 05/17/24 10:00 05/17/24 08:53 10 MG Atorvastatin Calcium 40 mg HS PO 05/16/24 22:00 05/16/24 21:36 40 MG Ceftriaxone Sodium 50 ml @ 100 mls/hr DAILY@09 IV 05/17/24 09:00 05/17/24 08:54 100 MLS/HR Diphenhydramine HCl 25 mg Q6HP PRN PO 05/16/24 20:45 05/17/24 12:05 25 MG Laboratory Results Laboratory Tests 05/17/24 06:29 Chemistry Test 05/17/24 06:29 Albumin 3.6 g/dL (3.2-4.8) Calcium Level 9.2 mg/dL (8.7-10.4) Total Protein 5.7 g/dL (5.7-8.2) LFT Test 05/17/24 06:29 Alanine Aminotransferase (ALT) 25 U/L (7-40) Alkaline Phosphatase 94 U/L (46-116) Aspartate Amino Transferase (AST) 28 U/L (13-40) Total Bilirubin 0.4 mg/dL (0.2-1.0) Urinalysis Test 05/16/24 15:16 Urine Color Light-yellow (Yellow) Urine Clarity Clear (Clear) Urine pH 6.5 (5.0-9.0) Urine Specific [place] 1.015 (1.001-1.035) Urine Protein Negative (Negative) Urine Ketones Negative (Negative) Urine Blood Negative /uL (Negative) Urine Nitrite Negative (Negative) Urine Bilirubin Negative (Negative) Urine Urobilinogen Normal mg/dL (Negative) Urine Leukocyte Esterase Negative /uL (Negative) Urine RBC <1 /hpf (0 - 4) Urine Microscopic WBC 1 /HPF (0-5) Urine Squamous Epithelial Cells Few /hpf (<5) Urine Bacteria None seen /hpf (None Seen) Urine Glucose Normal mg/dL (Normal) Microbiology Microbiology Date/Time Source Procedure Growth Status 05/16/24 15:16 Voided Urine Urine Culture - Preliminary Resulted 05/16/24 11:45 Blood Blood Culture - Preliminary NO GROWTH AFTER 24 HOURS OF INCUBATION. Resulted Assessment/Plan Assessment/Plan # Hypertensive Urgency - Monitor and adjust meds as needed # Acute Systolic/Diastolic CHF - Lasix IV # Pulm Edema - Lasix IV # Goals of care discussion > 17 mins FULL CODE Plan discussed with: Patient My Orders Orders - CAMELIA CAPELLAN MD Procedure Category Date Status Time Thyroid Stimulating LAB 05/17/24 Transmitted Hormone 15:36 Free T4 (Free LAB 05/17/24 Transmitted Thyroxine) 15:36 Vitamin B12 LAB 05/17/24 Transmitted 15:36 Date of Service: May 17, 2024 Billing Provider: CAMELIA CAPELLAN MD Common Visit Codes: [id number] INP/OBS CARE(HIGH) Secondary Visit Codes: 12861-[id number] CARE PLAN 30 MINUTES CAMELIA CAPELLAN MD May 17, 2024 15:42
[2024-05-17] MEDS ORDERED: FUROSEMIDE 20 MG/2 ML VIAL IV ONE (15:45)
[2024-05-17] MEDS: SODIUM CHLORIDE 0.9% 250 ML IV ONE (21:30)
[2024-05-18] VITALS (11 sets, daily range): BP systolic 64–175; BP diastolic 39–102; PULSE 60–87; RESP 15–18; TEMP 36.8; O2SAT 95–99
[2024-05-18 10:22] LABS: Free T4 (Free Thyroxine) 1.26 ng/dL (0.89-1.76)
[2024-05-18] MEDS: FUROSEMIDE 20 MG/2 ML VIAL IV SCH (12:46)
[2024-05-18] MEDS: METOPROLOL SUCCINATE XL 50 MG TAB PO SCH (12:47)
--- NOTE | 2024-05-18 13:52 | DVHSR ---
APPROVED REPORT EXAM: Two-dimensional and M-mode echocardiogram with Doppler and color Doppler. Blood Pressure: 135/52 mmHg INDICATION Heart Failure RISK FACTORS Height: 4'10", Weight: 123 DIMENSIONS LVDd4.3 (3.8-5.7cm)LA (2D)4.1 (1.9-4.0cm)Aortic Root3.1 (2.0-3.7cm) LVDs3.0 (2.5-4.0cm)LA (MM) (1.9-4.0cm)Aortic Cusp Exc1.5 (1.5-2.0cm) EF (%) 58.0 (55-70%)Rt. Atrium4.2 (1.9-4.0cm)Asc. Aorta3.1 cm IVSd0.8 (0.7-1.1cm)RV (D)3.7 (1.8-2.4cm) PWd1.0 (0.7-1.1cm) Mitral Valve MitralMitral Stenosis E wave0.76m/sMV Mean GR.mmHg A wave1.08m/sMV Peak GR.mmHg E/A ratio0.72D MVAcm2 DECEL [id number] 1/2 Tim[place] Aortic Valve Aortic ValveAortic Stenosis V10.95m/Pauline Mean GR.5mmHg V21.37m/Pauline Peak GR.8mmHg LVOT Diameter1.9 (1.8-2.4cm)Doppler AVA1.97cm2 AI P 1/2 Wgyl652.02ms Pulmonic Valve V20.92m/s Tricuspid Valve TR Velocity2.95m/s [id number] Other Information Quality : Technically LimitedRhythm : Technically limited study due to body habitus. Conclusion There is moderate concentric left ventricular hypertrophy Left ventricular systolic function is preserved Ejection fraction is estimated at 60% Left atrium was dilated Aortic valve is sclerotic without evidence of stenosis There is [id number] aortic regurgitation The there is moderate mitral annular calcification There is mild mitral regurgitation There is [id number] tricuspid regurgitation Right ventricular systolic pressure estimated to be within normal limits There is no pericardial effusion
[2024-05-18] MEDS ORDERED: CEPH250C PO (14:14)
--- NOTE | 2024-05-18 14:20 | DVHDS2 ---
Discharge Summary Date of Admission May 16, 2024 at 09:57 Date of Discharge: May 18, 2024 Admitting Diagnosis Hypertensive Urgency Labs/Diagnostic Data: Laboratory Results Test 05/17/24 06:29 05/16/24 15:16 05/16/24 11:45 05/16/24 10:32 White Blood Count 4.5 10^3/uL (4.4-10.8) Red Blood Count 3.83 10^6/uL (4.0-5.20) Hemoglobin 11.3 g/dL (12.2-16.2) Hematocrit 33.9 % (36.0-46.0) Mean Corpuscular Volume 88.5 fL (80.0-100.0) Mean Corpuscular Hemoglobin 29.6 pg (28.0-32.0) Mean Corpuscular Hemoglobin Concent 33.4 g/dL (32.0-36.0) Red Cell Distribution Width 13.9 % (11.8-14.3) Platelet Count 166 10^3/uL (140-450) Mean Platelet Volume 8.5 fL (6.9-10.8) Neutrophils (%) (Auto) % (37.0-80.0) Lymphocytes (%) (Auto) % (10.0-50.0) Monocytes (%) (Auto) % (0.0-12.0) Basophils (%) (Auto) % (0.0-2.0) Neutrophils # (Auto) 10 ^3/uL (1.6-8.6) Lymphocytes # (Auto) 10 ^3/uL (0.4-5.4) Monocytes # (Auto) 10 ^3/uL (0-1.3) Differential Total Cells Counted 100.0 (100) Neutrophils % (Manual) 47 (37.0-80.0) Band Neutrophils % (Manual) 0 Lymphocytes % (Manual) 19 (10.0-50.0) Monocytes % (Manual) 8 (0-12) Eosinophils % (Manual) 26 (0-7) Basophils % (Manual) 0 (0.0-2.0) Metamyelocytes % (manual) 0 Myelocytes % (Manual) 0 Promyelocytes % (Manual) 0 Blast Cells % (Manual) 0 Reactive Lymphocytes 0 Platelet Estimate Adequate Sodium Level 142 mmol/L (136-145) Potassium Level 4.0 mmol/L (3.5-5.1) Chloride Level 108 mmol/L (98-107) Carbon Dioxide Level 26 mmol/L (20-31) Anion Gap 8 (5-15) Blood Urea Nitrogen 19 mg/dL (9-23) Creatinine 1.10 mg/dL (0.550-1.02) Glomerular Filtration Rate Calc 48 mL/min (>90) BUN/Creatinine Ratio 17.3 (10.0-20.0) Serum Glucose 93 mg/dL (74-106) Calcium Level 9.2 mg/dL (8.7-10.4) Total Bilirubin 0.4 mg/dL (0.2-1.0) Aspartate Amino Transferase (AST) 28 U/L (13-40) Alanine Aminotransferase (ALT) 25 U/L (7-40) Alkaline Phosphatase 94 U/L (46-116) Total Protein 5.7 g/dL (5.7-8.2) Albumin 3.6 g/dL (3.2-4.8) Vitamin B12 Level 845 pg/mL (211-911) Thyroid Stimulating Hormone (TSH) 0.96 uIU/mL (0.55-4.78) Free Thyroxine (T4) Calculated 1.26 ng/dL (0.89-1.76) Urine Color Light-yellow (Yellow) Urine Clarity Clear (Clear) Urine pH 6.5 (5.0-9.0) Urine Specific [place] 1.015 (1.001-1.035) Urine Protein Negative (Negative) Urine Ketones Negative (Negative) Urine Blood Negative /uL (Negative) Urine Nitrite Negative (Negative) Urine Bilirubin Negative (Negative) Urine Urobilinogen Normal mg/dL (Negative) Urine Leukocyte Esterase Negative /uL (Negative) Urine RBC <1 /hpf (0 - 4) Urine Microscopic WBC 1 /HPF (0-5) Urine Squamous Epithelial Cells Few /hpf (<5) Urine Bacteria None seen /hpf (None Seen) Urine Glucose Normal mg/dL (Normal) Erythrocyte Sedimentation Rate 8 mm/hr (0-20) C-Reactive Protein High Sensitivity 0.20 mg/dL (<1.0) Lactic Acid Level 1.3 mmol/L (0.4-2.0) Troponin I High Sensitivity 7 ng/L (</=34) Test 05/16/24 06:23 Eosinophils (%) (Auto) % (0.0-7.0) B-Type Natriuretic Peptide 270.29 pg/mL (0-100) Other Laboratory Tests 05/17/24 06:29 Brief Hx & Hospital Course: Natalie Dumas is an 89-year-old female with past medical history of hypertension, CKD, CHF, hard of hearing, 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 Patient reports that she went to the urgent care yesterday was given 2 pills to take because her systolic blood pressure was 189-229. Patient also reports that she has been having shakiness for the last 20 minutes and also itching for the last 1 year. Patient also complained of mild UTI symptoms. I spoke with the patients daughter over the phone, discuss plan of care with her. Blood pressure has improved. Patient advised to continue home blood pressure meds and Keflex for UTI. Followup in [place] [facility]. Operations or Procedures APPROVED REPORT EXAM: Two-dimensional and M-mode echocardiogram with Doppler and color Doppler. Blood Pressure: 135/52 mmHg INDICATION Heart Failure RISK FACTORS Height: 4'10", Weight: 123 DIMENSIONS LVDd 4.3 (3.8-5.7cm) LA (2D) 4.1 (1.9-4.0cm) Aortic Root 3.1 (2.0- 3.7cm) LVDs 3.0 (2.5-4.0cm) LA (MM) (1.9-4.0cm) Aortic Cusp Exc 1.5 (1.5- 2.0cm) EF (%) 58.0 (55-70%) Rt. Atrium 4.2 (1.9-4.0cm) Asc. Aorta 3.1 cm IVSd 0.8 (0.7-1.1cm) RV (D) 3.7 (1.8-2.4cm) PWd 1.0 (0.7-1.1cm) Mitral Valve Mitral Mitral Stenosis E wave 0.76m/s MV Mean GR. mmHg A wave 1.08m/s MV Peak GR. mmHg E/A ratio 0.7 2D MVA cm2 DECEL Time 273ms PRESS 1/2 Time ms Aortic Valve Aortic Valve Aortic Stenosis V1 0.95m/s AO Mean GR. 5mmHg V2 1.37m/s AO Peak GR. 8mmHg LVOT Diameter 1.9 (1.8-2.4cm) Doppler JORGE A 1.97cm2 AI P 1/2 Time 361.02ms Pulmonic Valve V2 0.92m/s Tricuspid Valve TR Velocity 2.95m/s RVSP 43mmHg Other Information Quality : Technically Limited Rhythm : Technically limited study due to body habitus. Conclusion There is moderate concentric left ventricular hypertrophy Left ventricular systolic function is preserved Ejection fraction is estimated at 60% Left atrium was dilated Aortic valve is sclerotic without evidence of stenosis There is [id number] aortic regurgitation The there is moderate mitral annular calcification There is mild mitral regurgitation There is ozga-fi-iovglvxu tricuspid regurgitation Right ventricular systolic pressure estimated to be within normal limits There is no pericardial effusion Condition at Discharge: Poor Final Diagnosis/Problems List # Hypertensive Urgency - Resolved # Acute Diastolic CHF - Resolved # Pulm Edema - Improved # Possible Acute Cystitis - Keflex # Goals of care discussion > 17 mins FULL CODE Discharge Disposition: Home Discharge Instruct/Medications Diet: Cardiac 2g Na,low cholest (2 gm sodium, low cholesterol) Activity: Light activity Follow Up/Referral: [facility] Medications: see med [facility] Discharge Statement: "Patient was advised to return to the ER or call 911 if any headaches, dizziness, shortness of breath, chest pain, abdominal pain, bleeding, fevers, or worsening of medical condition. Patient was counseled about treatment plan, medications, possible side effects, patientverbalized understanding. All questions were answered to the best of my ability. This discharge took greater then 30 minutes in planning, reviewing documentation, counseling the patient, and discussing with other team members." ASSESSMENT ASSESSMENT Assessment Date of Service: May 18, 2024 Billing Provider: CAMELIA CAPELLAN MD Common Visit Codes: 55329-HAK/OBS DISCH DAY >30min CAMELIA CAPELLAN MD May 18, 2024 14:20
== END 2024-05-18 16:49 | disposition home health service (06) | DRG 291 ==
LOC: EDBD 05:32 → ER 05:32 → OVERFLOW 09:57 → WEST WING 15:42
PROVIDERS: ADMIT Internal Medicine; ATTEND Internal Medicine
DX: I13.0 Hypertensive heart and chronic kidney disease with heart failure and stage 1 through stage 4 chronic kidney disease, or unspecified chronic kidney disease (principal); I50.31 Acute diastolic (congestive) heart failure; N17.9 Acute kidney failure, unspecified; N30.00 Acute cystitis without hematuria; I16.0 Hypertensive urgency; I08.3 Combined rheumatic disorders of mitral, aortic and tricuspid valves; M79.605 Pain in left leg; N18.9 Chronic kidney disease, unspecified; Z88.6 Allergy status to analgesic agent; Z88.5 Allergy status to narcotic agent; Z88.8 Allergy status to other drugs, medicaments and biological substances; Z79.82 Long term (current) use of aspirin; Z79.899 Other long term (current) drug therapy; Z90.5 Acquired absence of kidney; Z86.73 Personal history of transient ischemic attack (TIA), and cerebral infarction without residual deficits
CPT/HCPCS: 36415; 70450; 71045; 80053; 81001; 82607; 83605; 83880; 84439; 84443; 84484; 85007; 85027; 85652; 86141; 87040; 87086; 93005; 93306; 93970; 96365; 96375; G0378; J3490